=== PATIENT | female | born 1955 | race Caucasian/White ===

== ENCOUNTER 2018-01-12 22:30 | Observation (INO) ==
[2018-01-12] MEDS ORDERED: *HR* FentaNYL (PF) 100 MCG/2 ML VIAL IVP ONE (23:17)
[2018-01-12] MEDS ORDERED: Ondansetron 4 MG/2 ML VIAL IVP ONE (23:18)
--- NOTE | 2018-01-12 23:20 | Emergency Department Note ---
Disposition Clinical Impression: Headache Qualifiers: Headache type: unspecified Headache chronicity pattern: unspecified pattern Intractability: not intractable Qualified Code(s): R51 - Headache CVA (cerebral vascular accident) Qualifiers: CVA mechanism: unspecified Qualified Code(s): I63.9 - Cerebral infarction, unspecified Disposition: Admitted As Inpatient Condition: Fair Time of Disposition: 02:44 General Adult HPI - General Chief complaint: ED Back Pain/Injury Stated complaint: Neck pain, injured it 2 yrs ago Time Seen by Provider: 01/12/18 22:47 Source: patient, family Mode of arrival: ambulatory Limitations: no limitations Nursing Notes Reviewed: Yes Vital Signs Reviewed: Yes - History of Present Illness HPI Narrative: 62-year-old female with history of aneurysm coiled at [facility] last year presents for evaluation of headache as well as neck pain. Patient states she has chronic neck pain but however worsened acutely in the past 24 hours. Denies any specific trauma.Pain is primarily on the right cervical. Patient denies any nausea or vomiting. Patient denies any focal neurologic deficits besides tingling of the fingers. Patient denies any chest penetrance of breath. No fevers. Patient denies any weakness. Patient denies taking any specific pain medication besides Tylenol at home. Pain Scale: 5 - Related Data Allergies Allergy/AdvReac Type Severity Reaction Status Date / Time acetaminophen [From Vicodin] Allergy Hives Verified 01/12/18 22:36 codeine Allergy Hives Verified 01/12/18 22:36 hydrocodone [From Vicodin] Allergy Hives Verified 01/12/18 22:36 All systems ED: reviewed and negative except as stated. Constitutional: Denies: fever Cardiovascular: Denies: chest pain Respiratory: Denies: cough, dyspnea, wheezes Gastrointestinal: Denies: abdominal pain, nausea, vomiting Musculoskeletal: Denies: back pain Past Medical History - Past Medical History Source: patient Medical history: Reports: hyperlipidemia, hypertension Psychiatric history: Reports: anxiety, depression - Social History Smoking Status: Never smoker Smokeless Tobacco Status: No Alcohol use: Reports: none Drug use: Reports: none Physical Exam - General Limitations: no limitations General appearance: alert - Head Head exam: atraumatic, normocephalic, normal inspection - Eye Eye exam: Present: normal appearance, PERRL, EOMI - ENT ENT exam: normal exam, normal oropharynx, mucous membranes moist - Neck Neck exam: Present: normal inspection - Chest Chest inspection: Present: normal inspection - Respiratory Respiratory exam: Present: normal lung sounds bilaterally. Absent: respiratory distress - Cardiovascular Cardiovascular exam: Present: regular rate, normal rhythm. Absent: systolic murmur - Abdominal Exam Abdominal exam: Present: soft, Non-Tender - Extremities Exam Extremities exam: Present: normal inspection. Absent: pedal edema - Expanded Lower Extremity Exam Neurovascular/Tendon exam: Present: normal capillary refill - Back Exam Back exam: Present: normal inspection - Neurological Exam Neurological exam: Present: alert, oriented X3, CN II-XII intact - Skin Skin exam: Present: warm, dry, intact, normal color Course Course Narrative: Patient does have a history of aneurysm. Patient get a CT angiogram of the head and cervical spine. Patient also get appropriate pain control. Disposition pending. Patient is noted a stroke alert as she is outside any time window for last known well. Patient's only neurologic symptom was tingling in her hands. Patient has a nonfocal exam otherwise. - Reevaluation(s) Reevaluation #1: Patient's resting comfortably. Patient's neuro exam is unremarkable. Patient' s labs are also unremarkable. Awaiting CT [facility] the head and neck. Time: 01:13 Reevaluation #2: Patient is now complaining of Time: 02:05 Vital Signs Temperature 97.8 F 01/12/18 22:36 Pulse Rate 84 01/12/18 22:36 Respiratory Rate 18 01/12/18 22:36 Blood Pressure 188/95 01/12/18 22:36 O2 Sat by Pulse Oximetry 96 01/12/18 22:36 Temperature 97.8 F 01/12/18 22:36 Pulse Rate 58 01/13/18 04:39 Respiratory Rate 18 01/13/18 04:39 Blood Pressure 133/60 01/13/18 04:39 O2 Sat by Pulse Oximetry 93 01/13/18 04:39 Oxygen Delivery Oxygen Delivery Room Air Medical Decision Making - MDM Narrative Medical decision making narrative: Patient ED evaluation shows no acute intracranial hemorrhage or new aneurysm. Patient labs also are unremarkable. Patient's pain was controlled emergency department. Patient will be instructed can continue with anti-inflammatory as well as muscle relaxants for pain at home. Also recommend topical therapy such as icy hot. Patient's instructed to follow-up with her primary care physician regarding further management. There is low suspicion or concerns for meningitis or encephalitis. There is no concerns or suspicion of subarachnoid hemorrhage. Patient complains of R sided facial numbness and tingling of the hands. Patient will have an NIH 1. Would recommend admission with TIA v CVA and advanced imaging. - Lab Data Lab results reviewed: Yes I reviewed the patient's lab results. Result diagrams: 01/12/18 23:20 01/12/18 23:20 Lab Results 01/12/18 01/12/18 01/12/18 Range/Units 23:20 23:20 23:20 WBC 5.8 (4.3-11.1) K/mcL RBC 4.81 (3.82-4.97) M/mcL Hgb 14.4 (11.5-15.4) g/dL Hct 42.3 (35.3-44.9) % MCV 87.9 (83.0-100.0) fL MCH 29.9 (28.0-33.3) pg MCHC 34.0 (31.6-35.5) g/dL RDW 12.8 (11.5-14.5) % Plt Count 211 (140-400) K/mcL MPV 10.0 (9.4-12.4) fL Immature Gran % 0.2 (0-4) % Seg Neutrophils % 46.5 % Lymphocytes % 43.4 % Monocytes % 6.2 % Eosinophils % 2.8 % Basophils % 0.9 % Neutrophils # 2.7 (1.6-8.9) K/mcL Lymphocytes # 2.5 (0.6-4.6) K/mcL Monocytes # 0.4 (0.0-1.3) K/mcL Eosinophils # 0.2 (0.0-0.6) K/mcL Basophils # 0.1 (0.0-0.2) K/mcL PT 10.8 (9.4-12.1) Seconds INR 1.0 Sodium 138 (136-145) mEq/L Potassium 3.5 (3.5-5.1) mEq/L Chloride 108 H (98-107) mEq/L Carbon Dioxide 23 (23-29) mEq/L BUN 11 (8-23) mg/dL Creatinine 0.71 (0.60-1.20) mg/dL Est GFR ( Amer) > 60 (> 60) Est GFR (Non-Af Amer) > 60 (> 60) BUN/Creatinine Ratio 15 (6-26) Glucose 156 H (70-105) mg/dL Calculated Osmolality 289 (280-300) Calcium 9.4 (8.6-10.3) mg/dL - Radiology Data Radiology results reviewed: Yes I reviewed the patient's radiology results. 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 No evidence of recurrent aneurysm. No high-grade stenosis or focal occlusion involving the intracranial vasculature or cervical vasculature. Status post right frontal craniotomy with encephalomalacia within anterior right temporal lobe. No acute intracranial findings. No acute intracranial hemorrhage. 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 No evidence of recurrent aneurysm. No high-grade stenosis or focal occlusion involving the intracranial vasculature or cervical vasculature. Status post right frontal craniotomy with encephalomalacia within anterior right temporal lobe. No acute intracranial findings. No acute intracranial hemorrhage. D/ / Aditya Hebert MD / Aditya Hebert MD Interpreting Provider: Aditya Hebert MD - EKG Data EKG #1 EKG attestation: Yes I reviewed and interpreted this EKG. EKG shows normal: sinus rhythm Rate: bradycardia Rhythm: NSR Marshall/QRS: left axis deviation T wave inversions noted in: v1, v2 Interpretation: no acute changes, nonspecific ST-T wave changes S.B.A.R. - S.B.A.R. Situation: Demographics Background: Presenting Complaint Assessment: Vital Signs, Course and respsone to treatment, Patient/Family Expectation Recommendation: Barrier(s) to disposition, Recommendation based on pending studies, treatments, or consults S.B.A.R. Report Given to: Dr. Simpson SSandraB.ATrevor Repor Time: 02:44 Attestation Statement - Attestation Attestation: I examined this patient and my medical decision-making was reviewed with the Resident Physician. I agree with the documented findings, disposition and treatment plan as described except to the extent set forth below. Findings consistent with facial numbness and neck pain. History of aneurysm.This was coliled at [facility]. CT of the head and neck show no evidence of acute aneurysm. Patient does have an age score of 1. We will proceed with admission for rule out TIA versus stroke. Patient has not candidate for TPA as the onset of her symptoms is unclear.
[2018-01-12 23:30] LABS: Basophils # 0.1 K/mcL (0.0-0.2); Basophils % 0.9 %; Eosinophils # 0.2 K/mcL (0.0-0.6); Eosinophils % 2.8 %; Hematocrit 42.3 % (35.3-44.9); Hemoglobin 14.4 g/dL (11.5-15.4); Immature Granulocytes % 0.2 % (0-4); Lymphocytes # 2.5 K/mcL (0.6-4.6); Lymphocytes % 43.4 %; Mean Corpuscular Hemoglobin 29.9 pg (28.0-33.3); Mean Corpuscular Volume 87.9 fL (83.0-100.0); Monocytes # 0.4 K/mcL (0.0-1.3); Monocytes % 6.2 %; Neutrophils # 2.7 K/mcL (1.6-8.9); Platelet Count 211 K/mcL (140-400); Red Blood Count 4.81 M/mcL (3.82-4.97); Red Cell Distribution Width 12.8 % (11.5-14.5); Segmented Neutrophils % 46.5 %
[2018-01-12 23:35] LABS: Prothrombin Time 10.8 Seconds (9.4-12.1)
[2018-01-12 23:48] LABS: BUN/Creatinine Ratio 15 (6-26); Blood Urea Nitrogen 11 mg/dL (8-23); Calcium 9.4 mg/dL (8.6-10.3); Carbon Dioxide 23 mEq/L (23-29); Chloride 108 mEq/L (98-107); Glucose 156 mg/dL (70-105); Osmolality,Calculated 289 (280-300); Potassium 3.5 mEq/L (3.5-5.1); Sodium 138 mEq/L (136-145); eGFR For African Americans > 60 (> 60); eGFR For Non-African Americans > 60 (> 60)
[2018-01-13] MEDS ORDERED: Aspirin 81 MG TAB.CHEW PO ONE (02:04)
[2018-01-13] MEDS ORDERED: Naloxone 0.4 MG/ML INJ IVP PRN (02:56)
[2018-01-13] MEDS ORDERED: Acetaminophen 325 MG TABLET PO PRN (02:56)
--- NOTE | 2018-01-13 03:02 | Internal Med History&Physical ---
Date of Encounter: 01/13/18 Time of Encounter: 02:59 Internal Medicine - H&P: HPI Chief complaint: Headache Admitted From: Emergency Dept Plans for Post Hospital Care: Home History of present illness: Ms. Holt is a 62 year old female with history of brain aneurysm status post clipping/coiling, HTN, HLD, depression who initially presented to get evaluated for headache and becasue of her history of a brain aneurysm last year she underwent a CTA head and neck in the ED which were unremarkable. She initally came to get evaluated for a headache and later in her stay she mentioned facial numbness to the ED staff which is when we were called to admit the patient for TIA/CVA. ED staff could not get from the patient exact timing of symptoms from the patient as she is a really bad historian. When I came to evaluate the patient, she was mostly moaning in bed because of the headache and was pointing to her right side of the head. She says it is sharp and constand for last 3 days. When I asked her if it was only on the right side, she said no it also goes to the left too. She describes numbness of the face and bilateral upper and lower extremities that comes and goes. She feels weak. No dysarthria or confusion. Denies fever/chills/nausea/vomiting/chest pain/shortness of breath/ abdominal pain/urinary symptoms. She says nothing helps her headache. She received fentanyl in the ED. No aggravating factors. Past Med Surg Social Fam HX - Past Medical History Medical history: hyperlipidemia, hypertension Psychiatric history: anxiety, depression - Social History Smoking Status: Never smoker Smokeless Tobacco Status: No Alcohol use: none Drug use: none Internal Medicine - H&P: Meds 3 Allergy/AdvReac Type Severity Reaction Status Date / Time acetaminophen [From Vicodin] Allergy Hives Verified 01/12/18 22:36 codeine Allergy Hives Verified 01/12/18 22:36 hydrocodone [From Vicodin] Allergy Hives Verified 01/12/18 22:36 All Systems PM: A 10-system review of systems was performed and is negative for pertinent findings except as documented above in the HPI. Review of systems: All systems reviewed are negative except those mentioned above - Constitutional Vitals: Temp Pulse Resp BP Pulse Ox 97.8 F 16 69 130/83 96 01/12/18 22:36 01/13/18 02:46 01/13/18 02:46 01/13/18 02:46 01/13/18 02:46 Exam: GEN: NAD HEENT: AT, NC, No cyanosis, oral mucosa is moist, No JVD Lymphatics: No lymphadenoapthy Eyes: Extrocular muscles intact, anicteric CVS:RRR. S1, S2, No m/r/g RESP: CTAB ABD: Soft, NT, ND, +BS EXT: No edema, No rashes, 2+ DP NEURO: Nonfocal, CN II-XII intact, No focal motor or sensory deficits Psych: Cooperative, Not anxious or depressed Internal Med - H&P Results - Labs CBC & Chem 7: 01/12/18 23:20 01/12/18 23:20 Labs: Short CBC 01/12/18 Range/Units 23:20 WBC 5.8 (4.3-11.1) K/mcL Hgb 14.4 (11.5-15.4) g/dL Hct 42.3 (35.3-44.9) % Plt Count 211 (140-400) K/mcL Neutrophils # 2.7 (1.6-8.9) K/mcL BMP 01/12/18 23:20 Sodium 138 Potassium 3.5 Chloride 108 H Carbon Dioxide 23 BUN 11 Creatinine 0.71 Glucose 156 H Calcium 9.4 - Impressions ITS Impressions Chest X-Ray 01/13/18 02:06 IMPRESSION: 1. No acute cardiopulmonary disease. 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 No evidence of recurrent aneurysm. No high-grade stenosis or focal occlusion involving the intracranial vasculature or cervical vasculature. Status post right frontal craniotomy with encephalomalacia within anterior right temporal lobe. No acute intracranial findings. No acute intracranial hemorrhage. 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 No evidence of recurrent aneurysm. No high-grade stenosis or focal occlusion involving the intracranial vasculature or cervical vasculature. Status post right frontal craniotomy with encephalomalacia within anterior right temporal lobe. No acute intracranial findings. No acute intracranial hemorrhage. D/ / Aditya Hebert MD / Aditya Hebert MD Interpreting Provider: Aditya Hebert MD - Assessment and plan (1) Facial numbness Current Visit: Yes Status: Acute Assessment and plan: Not sure when they started exactly. She tells me they have been there for 3 days which is when her headache started. She told the ED staff different times of onset. Either way, her exact onset of symptoms is unknown. Patient had a CTA head and neck which were unremarkable. We will admit the patient and get an MRI brain in the morning. Patient is status post aspirin 325 mg. We will check lipid panel and A1c. If MRI brain is negative patient can be discharged. Her numbness could be related to complex migraines or hemiplegic migraines/ headaches (2) Headache Current Visit: Yes Status: Acute Assessment and plan: Treat symptomatically for now. Will give a trial of migraine cocktail (benadryl , compazine, toradol) Qualifiers: Headache type: unspecified Headache chronicity pattern: unspecified pattern Intractability: not intractable Qualified Code(s): R51 - Headache (3) Brain aneurysm Current Visit: Yes Status: Acute Assessment and plan: Status post coiling/clipping. (4) Hypertension Current Visit: Yes Status: Acute Assessment and plan: Resume home meds when available. BP stable for now Qualifiers: Hypertension type: essential hypertension Qualified Code(s): I10 - Essential (primary) hypertension (5) Hyperlipidemia Current Visit: Yes Status: Acute Assessment and plan: c/w home meds Qualifiers: Hyperlipidemia type: pure hypercholesterolemia Qualified Code(s): E78.00 - Pure hypercholesterolemia, unspecified; E78.0 - Pure hypercholesterolemia (6) DVT prophylaxis Current Visit: Yes Status: Acute Assessment and plan: Heparin subcutaneous - Time Spent With Patient Total time spent is greater than 50% in coordination of care (as documented) at patient's floor/unit and/or counseling patient:
[2018-01-13] MEDS ORDERED: Ketorolac 30 MG/ML VIAL IVP ONE ×2 (03:28→22:44)
[2018-01-13] MEDS ORDERED: Prochlorperazine 10 MG/2 ML VIAL IVP ONE (03:28)
[2018-01-13] MEDS: *HR* Heparin 5,000 UNIT/ML VIAL SQ SCH ×3 (05:33→20:43)
[2018-01-13 07:00] LABS: Chol/HDL Ratio 4.7 (0-4.9)
[2018-01-13 09:09] LABS: Estimated Average Glucose 134 mg/dl; Hemoglobin A1C 6.3 %
--- NOTE | 2018-01-13 16:12 | Event Note ---
Date of Encounter: 01/13/18 Time of Encounter: 16:10 The patient is lying in bed with her to bedside in no distress. She states she feels little better. She still has a slight headache. No facial numbness or extremity numbness. She states she feels like she pulled her neck muscles or slept wrong. Denies fevers, chills, nausea, vomiting, changes in bowel or bladder. Records have been received from [facility] and MRI of the brain is still pending.
--- NOTE | 2018-01-13 17:21 | Electrocardiograph Report ---
[place] [id number] Test Date: 2018-01-13 Pat Name: Merry Holt Department: 103 Room: 3B37 Gender: F [employer] Office: [employer] : 1955 Requested By: Kevin Livingston Order Number: [id number] Reading MD: Jodie Bowser Measurements Intervals [place] Rate: 58 P: 51 IA: 190 QRS: -25 QRSD: 109 T: 83 QT: 448 QTc: 444 Interpretive Statements SINUS BRADYCARDIA LEFT VENTRICULAR HYPERTROPHY AND ST-T CHANGE [VOLTAGE CRITERIA PLUS ST/T ABNORMALITY] IVCD Electronically Signed On 01-13-2018 17:19:34 EDT by Jodie Bowser
[2018-01-13] MEDS ORDERED: cefTRIAXone 2,000 MG in Water for inj. (sterile) 20 ML 20 ML IVP ONE (18:45)
--- NOTE | 2018-01-13 18:45 | Neurology - Consult Note ---
Date of Encounter: 01/13/18 Time of Encounter: 18:40 Assessment and Plan (1) Headache Current Visit: Yes Status: Acute Patient's neurologic examination is essentially normal. However she has been experiencing right ear pain and a headache for about 2 weeks now. She does not have an elevated white count, nor does she have a fever. Today she had one episode of loose stools. It is possible that she could have a viral meningitis might of been seeded from the right labyrinth. However again she does not have nuchal rigidity does not have an elevated white blood cell count or elevated temperature. This could possibly I will be from right otitis media/external. I think it is reasonable to try and. Rocephin to see whether or not she feels better clinically overnight. She still has the neck discomfort and did feel some better earlier today after being given a muscle relaxer. She is not at all clinically improved tomorrow then I would anticipate lumbar puncture. I will reevaluate her tomorrow. Case discussed with the hospitalist. Qualifiers: Headache type: unspecified Headache chronicity pattern: unspecified pattern Intractability: not intractable Qualified Code(s): R51 - Headache History of Present Illness HPI: Ms. Holt is a 62 year old female who is being seen for neurologic consultation secondary to chief complaint of headache. She is been experiencing intermittent headaches for the last 2-3 weeks. Last night the headache became increasingly more intense and she simply wanted to come to the hospital to be further evaluated. She does have a prior history of cerebral aneurysm which was clipped about a year or so ago. She had CTA of the brain which did not reveal any evidence of hemorrhage or new aneurysms. MRI scan of the brain reveals postoperative changes in the right anterior temporal lobe region. Seroma was also present which is a normal postop finding. She denies sore throat but she does complain of right ear pain. She also complains of neck pain posteriorly and anteriorly. She denies chills or fever, she has had some photophobia. She is also very anxious and afraid. She denies any confusion associated with this. No numbness tingling or weakness of the arms or legs. Past Med Surg Social Fam HX - Past Medical History Medical history: hyperlipidemia, hypertension Psychiatric history: anxiety, depression - Past Surgical History Surgical History: hysterectomy - Social History Smoking Status: Never smoker Smokeless Tobacco Status: No Alcohol use: none Drug use: none - Family History Mother Name: Rin Judge Living Status: Age at : 52 Cause of : cancer Hx Family Cancer: Yes Medications and Allergies Albuterol Sulfate [Ventolin Hfa] 1 puff IH DAILY PRN 01/13/18 [History] Aspirin [Lo-Dose Aspirin EC] 81 mg PO DAILY 01/13/18 [History] Atenolol [Tenormin] 50 mg PO DAILY 01/13/18 [History] Atorvastatin [Lipitor] 40 mg PO HS 01/13/18 [History] Citalopram [CeleXA] 20 mg PO DAILY 01/13/18 [History] Ketoconazole Shampoo [Nizoral Shampoo] 1 appl TP DAILY 01/13/18 [History] Meloxicam [Mobic] 15 mg PO DAILY 01/13/18 [History] Metformin HCl [Metformin HCl ER] 500 mg PO DAILY 01/13/18 [History] Ondansetron HCl [Zofran] 4 mg PO Q8HR PRN 01/13/18 [History] SUMAtriptan Succinate [Imitrex] 100 mg PO DAILY PRN 01/13/18 [History] Tizanidine HCl 4 mg PO Q8H PRN 01/13/18 [History] hydrOXYzine HCl [Hydroxyzine HCl] 25 mg PO TID 01/13/18 [History] hydroCHLOROthiazide [Hydrochlorothiazide] 25 mg PO DAILY 01/13/18 [History] 3 Allergy/AdvReac Type Severity Reaction Status Date / Time acetaminophen [From Vicodin] Allergy Hives Verified 01/13/18 10:52 codeine Allergy Hives Verified 01/13/18 10:52 hydrocodone [From Vicodin] Allergy Hives Verified 01/13/18 10:52 All Systems: The remainder of the systems were reviewed and are negative Review of Systems: In point review of systems is consistent with a history of present illness and otherwise negative. Physical Examination - Vital Signs Vital Signs: Initial Vital Signs Temp Pulse Resp BP Pulse Ox 97.8 F 84 18 188/95 96 01/12/18 22:36 01/12/18 22:36 01/12/18 22:36 01/12/18 22:36 01/12/18 22:36 - Neurologic Detailed motor examination: full strength in all major muscle groups, other ( She does have some neck tenderness however she does not have nuchal rigidity.) Motor examination - right side: 02/13: deltoids, biceps, triceps, wrist flexion, wrist extension, film writer, hip flexors, tibialis Anterior, quadriceps, toe extension (EHL), plantarflexion Motor examination - left side: 5: deltoids, biceps, triceps, wrist flexion, wrist extension, hip flexors, film writer, quadriceps, tibialis Anterior, toe extension (EHL), plantarflexion Mental Status Examination: awake, alert, oriented to person, oriented to place, oriented to time, follows commands appropriately, answers questions appropriately, no agnosia, no aphasia, no aproxia Cranial nerve examination: PERRL, EOMI, visual rene intact, corneal reflexes brisk symmetrically, sensory to face intact, mastication intact, no facial asymmetry is present, no dysarthria, hearing is intact symmetrically, soft palate elevates bilaterally upon phonation, gag reflex intact, flexes SCM and trapezius muscles symmetrically with full power, tongue protrudes midline, no atrophy or facial fasiculations present Cranial Nerve Exam: hearing decreased: Right (Patient does have inflammation and ulceration of the right external canal. The right tympanic membrane membrane is also inflamed.) Cerebellar examination: no dysmetria, performs finger to nose and heel to jacques symmetrically without ataxia, no gait ataxia, no truncal ataxia, no difficulty with rapid alternating movements Results - Laboratory Findings CBC and BMP: 01/12/18 23:20 01/12/18 23:20 Abnormal lab findings: Abnormal lab results Chloride 108 mEq/L (98-107) H 01/12/18 23:20 Glucose 156 mg/dL (70-105) H 01/12/18 23:20 Hemoglobin A1c 6.3 % (-5.6) H 01/13/18 05:33 LDL Cholesterol, Calc 123 mg/dL (0-99) H 01/13/18 05:33 Consult Discharge Plan - Plan Referrals: Hari Olguin DO [Primary Care Provider] -
[2018-01-13] MEDS: Cortisporin *EAR* SOLN 10 ML BOTTLE RIGHT EAR SCH ×2 (20:35→20:50)
[2018-01-14] MEDS: *HR* Heparin 5,000 UNIT/ML VIAL SQ SCH (05:20)
[2018-01-14 07:20] LABS: BUN/Creatinine Ratio 19 (6-26); Blood Urea Nitrogen 13 mg/dL (8-23); Calcium 8.8 mg/dL (8.6-10.3); Carbon Dioxide 25 mEq/L (23-29); Chloride 114 mEq/L (98-107); Glucose 114 mg/dL (70-105); Osmolality,Calculated 287 (280-300); Sodium 138 mEq/L (136-145); eGFR For African Americans > 60 (> 60); eGFR For Non-African Americans > 60 (> 60)
[2018-01-14 07:28] LABS: Hematocrit 41.3 % (35.3-44.9); Hemoglobin 13.7 g/dL (11.5-15.4); Mean Corpuscular HGB Conc 33.2 g/dL (31.6-35.5); Mean Corpuscular Hemoglobin 29.8 pg (28.0-33.3); Mean Corpuscular Volume 89.8 fL (83.0-100.0); Mean Platelet Volume 10.2 fL (9.4-12.4); Platelet Count 195 K/mcL (140-400); Red Cell Distribution Width 12.7 % (11.5-14.5)
[2018-01-14] MEDS: Cortisporin *EAR* SOLN 10 ML BOTTLE RIGHT EAR SCH (09:40)
--- NOTE | 2018-01-14 09:45 | Neurology Progress Note ---
Date of Encounter: 01/14/18 Time of Encounter: 09:42 Assessment and Plan (1) Headache Current Visit: Yes Status: Acute At this juncture I am convinced that this patient's intense headache and discomfort was due to the right ear infection. She denies any ear pain this morning after having received antibiotics and eardrops, she also denies headache. She has no nuchal rigidity. Labs are normal. Neurologic examination is normal. At this juncture I think the spinal tap can be deferred. Further management of the otitis will be left up to the discretion of the hospitalist. I will reevaluate her at your request. Qualifiers: Headache type: unspecified Headache chronicity pattern: unspecified pattern Intractability: not intractable Qualified Code(s): R51 - Headache Subjective Interval history: The chart was reviewed, patient was seen and examined. She feels much better this morning. She denies any ear pain. The neck pain has reduced considerably. She has no nuchal rigidity. She is anxious to go home. Neurologic examination is normal. Objective - Constitutional Vitals: Temp Pulse Resp BP Pulse Ox 97.8 F 64 14 102/77 96 01/14/18 07:03 01/14/18 07:03 01/14/18 07:03 01/14/18 07:03 01/14/18 07:03 - Neurological Exam Motor Examination: Present: full strength in all major muscle groups, other ( She does have some neck tenderness however she does not have nuchal rigidity.) Motor examination - right side: 5/5: deltoids, biceps, triceps, manager cancer, hip flexors, tibialis Anterior, quadriceps, toe extension (EHL), plantarflexion Motor examination - left side: 5/5: deltoids, biceps, triceps, wrist flexion, wrist extension, hip flexors, manager cancer, quadriceps, tibialis Anterior, toe extension (EHL), plantarflexion Sensation intact: Present: intact Mental Status Examination: Present: awake, alert, oriented to person, oriented to place, oriented to time, follows commands appropriately, answers questions appropriately, no agnosia, no aphasia, no aproxia Cranial nerve examination: Present: PERRL, EOMI, visual rene intact, corneal reflexes brisk symmetrically, sensory to face intact, mastication intact, no facial asymmetry is present, no dysarthria, hearing is intact symmetrically, soft palate elevates bilaterally upon phonation, gag reflex intact, flexes SCM and trapezius muscles symmetrically with full power, tongue protrudes midline, no atrophy or facial fasiculations present Cranial Nerve Exam: hearing decreased: Right (Patient does have inflammation and ulceration of the right external canal. The right tympanic membrane membrane is also inflamed.) Cerebellar examination: Present: no dysmetria, performs finger to nose and heel to jacques symmetrically without ataxia, no gait ataxia, no truncal ataxia, no difficulty with rapid alternating movements Results - Laboratory Findings CBC and BMP: 01/14/18 05:51 01/14/18 05:51 Abnormal lab findings: Abnormal lab results Chloride 114 mEq/L (98-107) H 01/14/18 05:51 Glucose 114 mg/dL (70-105) H 01/14/18 05:51 Hemoglobin A1c 6.3 % (-5.6) H 01/13/18 05:33 LDL Cholesterol, Calc 123 mg/dL (0-99) H 01/13/18 05:33 Consult Discharge Plan - Plan Referrals: Hari Olguin DO [Primary Care Provider] -
[2018-01-14 11:21] VITALS: BP 165/60
--- NOTE | 2018-01-14 11:25 | Discharge Summary ---
- NOTES TO OUTPATIENT PROVIDER Notes to Outpatient Provider: f/u with PCP in 2 weeks to f/u on otitis media and neck sprain Date of Encounter: 01/14/18 Time of Encounter: 11:22 - Discharge Diagnosis (1) Headache Priority: Primary Status: Resolved Comments: likely secondary to neck pain and/or otitis media, resolved with treatment of neck stiffness Qualifiers: Headache type: unspecified Headache chronicity pattern: acute headache Intractability: not intractable Qualified Code(s): R51 - Headache (2) Facial numbness Priority: Primary Status: Resolved (3) Brain aneurysm Priority: Primary Status: Chronic Comments: stable (4) Hypertension Priority: Primary Status: Chronic Comments: continue blood pressure medication blood pressure stable Qualifiers: Hypertension type: essential hypertension Qualified Code(s): I10 - Essential (primary) hypertension (5) Hyperlipidemia Priority: Primary Status: Chronic Comments: continue statin Qualifiers: Hyperlipidemia type: pure hypercholesterolemia Qualified Code(s): E78.00 - Pure hypercholesterolemia, unspecified; E78.0 - Pure hypercholesterolemia (6) Otitis media of right ear Priority: Primary Status: Acute Comments: continue antibiotic for 10 day course Qualifiers: Otitis media type: suppurative Chronicity: acute Recurrence: not specified as recurrent Spontaneous tympanic membrane rupture: without spontaneous rupture Qualified Code(s): H66.001 - Acute suppurative otitis media without spontaneous rupture of ear drum, right ear (7) Otitis externa of right ear Priority: Primary Status: Acute Comments: continue ear drops for 10 days to right ear Qualifiers: Otitis externa type: unspecified type Chronicity: acute Qualified Code(s) : H60.501 - Unspecified acute noninfective otitis externa, right ear (8) Neck pain, musculoskeletal Priority: Primary Status: Acute Comments: continue muscle relaxer, heat for comfort Hospital course: Ms. Holt is a 62 year old female with a history of brain aneurysm status post clipping and coiling, hypertension, hyperlipidemia, depression who presented for evaluation of a headache and facial numbness. CTA of the head and neck were unremarkable. The headache was sharp and constant in nature have been a duration of 3 days. She stated was only on the right side of her head but some times it went to the left side. She described and numbness of her face and upper extremities bilaterally as well as some lower extremity numbness that waxed and waned. She felt generally weak. She had no fever, chills, nausea, vomiting, chest pain shortness of breath, abdominal pain or urinary symptoms. She received some fentanyl for the headache in the ER and on my evaluation the headache was relieved. She did complain of some right neck pain with movement. It was very tense on evaluation and she had difficulty with range of motion of her neck but no nuchal rigidity. No white count and no fever. Nor was consult noted. She was found to have a right external and medial otitis. Antibiotic ear drops were started as well as 2 g of Rocephin 1 dose. Muscle relaxer was started with good effect for repeat relief of the neck stiffness. On evaluation this morning her ear pain was gone her headache was totally resolved and she had much freer movement in her neck. She had no other symptoms, no blurred vision no Ivon deficits. She was a 0 on the NIH scale. She will be discharged on Augmentin and antibiotic ear drops. She is to follow up with her primary care physician in 14 days for evaluation of the otitis media. She was also given a short course of muscle relaxers and explained modalities to help with a stiff neck as well as muscle tensions. She verbalized understanding and is anxious to be discharged. Discharge discussed with: patient, family, nurse, case management - Time Spent with Patient Total time spent providing and/or coordinating discharge services: Less than 30 minutes - Discharge Medications Prescriptions: Amoxicillin/Clavulanate [Augmentin] 875 mg PO BIDWM 10 Days #20 tablet Cyclobenzaprine [Flexeril] 10 mg PO TID PRN 7 Days #21 tablet PRN Reason: Spasms Ramiro/Poly/HC *EAR* SOLN [Cortisporin *EAR* SOLN] 2 drop RIGHT EAR QID #1 bottle Home Medications: Albuterol Sulfate [Ventolin Hfa] 1 puff IH DAILY PRN 01/13/18 [History] Aspirin [Lo-Dose Aspirin EC] 81 mg PO DAILY 01/13/18 [History] Atenolol [Tenormin] 50 mg PO DAILY 01/13/18 [History] Atorvastatin [Lipitor] 40 mg PO HS 01/13/18 [History] Citalopram [CeleXA] 20 mg PO DAILY 01/13/18 [History] Ketoconazole Shampoo [Nizoral Shampoo] 1 appl TP DAILY 01/13/18 [History] Meloxicam [Mobic] 15 mg PO DAILY 01/13/18 [History] Metformin HCl [Metformin HCl ER] 500 mg PO DAILY 01/13/18 [History] Ondansetron HCl [Zofran] 4 mg PO Q8HR PRN 01/13/18 [History] SUMAtriptan Succinate [Imitrex] 100 mg PO DAILY PRN 01/13/18 [History] Tizanidine HCl 4 mg PO Q8H PRN 01/13/18 [History] hydrOXYzine HCl [Hydroxyzine HCl] 25 mg PO TID 01/13/18 [History] hydroCHLOROthiazide [Hydrochlorothiazide] 25 mg PO DAILY 01/13/18 [History] Amoxicillin/Clavulanate [Augmentin] 875 mg PO BIDWM 10 Days #20 tablet 01/14/18 [Rx] Cyclobenzaprine [Flexeril] 10 mg PO TID PRN 7 Days #21 tablet 01/14/18 [Rx] Ramiro/Poly/HC *EAR* SOLN [Cortisporin *EAR* SOLN] 2 drop RIGHT EAR QID #1 bottle 01/14/18 [Rx] Allergies/Adverse Reactions: 3 Allergy/AdvReac Type Severity Reaction Status Date / Time acetaminophen [From Vicodin] Allergy Hives Verified 01/13/18 10:52 codeine Allergy Hives Verified 01/13/18 10:52 hydrocodone [From Vicodin] Allergy Hives Verified 01/13/18 10:52 Date of admission: 01/13/18 04:05 Primary care physician: Hari Olguin DO Consults: 01/13/18 05:28 Consult to Data Assistant [CONS] Routine Reason for SW Consult: states she has home health- [facility] 01/13/18 16:12 Consult to Neurology [CONS] Routine Consulting Provider: Neurology [facility] Reason for Consult: headache and historuy brain aneurysm Time Notified: 16:13 Call Completed: Yes Discharging clinician: Suzan Mcallister Anticipated date of discharge: 01/14/18 - Constitutional Vitals: Temp Pulse Resp BP Pulse Ox 97.8 F 70 14 165/60 96 01/14/18 11:20 01/14/18 11:20 01/14/18 11:20 01/14/18 11:20 01/14/18 11:20 General appearance: Present: cooperative, A&O X 3, pleasant, no acute distress, answers questions appropriately - Head Head exam: Present: atraumatic, normocephalic - Eye Eye exam: Present: normal appearance, PERRL, conjuntiva pink, sclera anicteric. Absent: nystagmus Pupils: Present: PERRL - Neck Neck exam general surgery: Present: full ROM, normal inspection, supple, trachea midline. Absent: lymphadenopathy, tenderness, nuchal rigidity - Respiratory Respiratory exam: Present: CTAB. Absent: accessory muscle use, rales, rhonchi, wheezes - Cardiovascular Cardiovascular exam: Present: RRR, +S1, +S2. Absent: diastolic murmur, gallop, rubs, systolic murmur - GI/Abdominal GI/Abdominal exam: Present: normal bowel sounds, soft, no peritoneal signs. Absent: distended, tenderness - Extremities Exam Extremities exam: Present: warm, radial pulses palpable and symmetrical. Absent : calf tenderness, cyanotic, pedal edema - Neurological Exam Neurological exam: Present: alert, CN II-XII intact, normal gait, oriented X3, no focal deficits. Absent: altered, pronater drift, facial droop, speech deficit - Skin Skin exam: Present: dry, intact, normal color, warm - Patient Status Disposition: Home Health Service Condition: Fair Functional capacity at discharge: independent ambulation Overall status at discharge: patient is progressing back to baseline - Discharge Instructions Follow Up With: Hari Olguin DO [Primary Care Provider] - Sonya Wing DO [Resident] - 01/18/18 10:00 am - Diet and Activity Activity: resume usual activities as tolerated Diet: low fat, low cholesterol, low salt diet, other (yogurt with antibiotic or OTC probiotic daily)
== END 2018-01-14 13:40 | disposition home health service (06) ==
LOC: 3BNU 22:30 → EMEROO 22:30 → 3BNU 01-13 04:55
PROVIDERS: ADMIT Internal Medicine; ATTEND Registered Nurse

== ENCOUNTER 2018-03-28 16:52 | Inpatient (IN) ==
[2018-03-28] MEDS ORDERED: 0.9 % Sodium Chloride 1,000 ML IVC ONE ×2 (17:14→18:34)
[2018-03-28] MEDS ORDERED: Ondansetron 4 MG/2 ML VIAL IVP ONE (17:14)
--- NOTE | 2018-03-28 17:24 | Emergency Department Note ---
Disposition Clinical Impression: Abdominal pain, Sepsis, UTI (urinary tract infection), Pyelonephritis Disposition: Admitted As Inpatient Condition: Fair Referrals: Hari Olguin DO [Primary Care Provider] - Forms: ED Satisfaction Letter General Adult HPI - General Chief complaint: ED Fever Stated complaint: chills Time Seen by Provider: 03/28/18 16:56 Source: patient Limitations: no limitations - History of Present Illness Pain Scale: 9 - Related Data Home Medications Medication Instructions Recorded Confirmed Albuterol Sulfate [Ventolin Hfa] 1 puff IH DAILY PRN 01/13/18 01/13/18 Aspirin [Lo-Dose Aspirin EC] 81 mg PO DAILY 01/13/18 01/13/18 Atenolol [Tenormin] 50 mg PO DAILY 01/13/18 01/13/18 Atorvastatin [Lipitor] 40 mg PO HS 01/13/18 01/13/18 Citalopram [CeleXA] 20 mg PO DAILY 01/13/18 01/13/18 Ketoconazole Shampoo [Nizoral 1 appl TP DAILY 01/13/18 01/13/18 Shampoo] Meloxicam [Mobic] 15 mg PO DAILY 01/13/18 01/13/18 Metformin HCl [Metformin HCl ER] 500 mg PO DAILY 01/13/18 01/13/18 Ondansetron HCl [Zofran] 4 mg PO Q8HR PRN 01/13/18 01/13/18 SUMAtriptan Succinate [Imitrex] 100 mg PO DAILY PRN 01/13/18 01/13/18 Tizanidine HCl 4 mg PO Q8H PRN 01/13/18 01/13/18 hydrOXYzine HCl [Hydroxyzine HCl] 25 mg PO TID 01/13/18 01/13/18 hydroCHLOROthiazide 25 mg PO DAILY 01/13/18 01/13/18 [Hydrochlorothiazide] Previous Rx's Medication Instructions Recorded Amoxicillin/Clavulanate [Augmentin] 875 mg PO BIDWM 10 Days #20 tablet 01/14/18 Cyclobenzaprine [Flexeril] 10 mg PO TID PRN 7 Days #21 tablet 01/14/18 Ramiro/Poly/HC *EAR* SOLN 2 drop RIGHT EAR QID #1 bottle 01/14/18 [Cortisporin *EAR* SOLN] Allergies Allergy/AdvReac Type Severity Reaction Status Date / Time acetaminophen [From Vicodin] Allergy Hives Verified 01/13/18 10:52 codeine Allergy Hives Verified 01/13/18 10:52 hydrocodone [From Vicodin] Allergy Hives Verified 01/13/18 10:52 Past Medical History - Past Medical History Medical history: Reports: hyperlipidemia, hypertension Surgical history: Reports: hysterectomy Psychiatric history: Reports: anxiety, depression - Social History Smoking Status: Never smoker Smokeless Tobacco Status: No Alcohol use: Reports: none Drug use: Reports: none Physical Exam - General Limitations: no limitations General appearance: alert, anxious Course Vital Signs Temperature 99.9 F H 03/28/18 16:53 Pulse Rate 128 03/28/18 16:53 Respiratory Rate 22 03/28/18 16:53 Blood Pressure 171/79 03/28/18 16:53 O2 Sat by Pulse Oximetry 94 03/28/18 16:53 Temperature 99.9 F H 03/28/18 18:21 Pulse Rate 91 03/28/18 18:21 Respiratory Rate 18 03/28/18 18:21 Blood Pressure 154/73 03/28/18 18:21 O2 Sat by Pulse Oximetry 95 03/28/18 18:21 Oxygen Delivery Oxygen Delivery Room Air Medical Decision Making - Lab Data Result diagrams: 03/28/18 17:21 03/28/18 17:21 Lab Results 03/28/18 03/28/18 03/28/18 Range/Units 17:21 17:21 17:21 WBC 8.1 (4.3-11.1) K/mcL RBC 5.07 H (3.82-4.97) M/mcL Hgb 15.3 (11.5-15.4) g/dL Hct 45.1 H (35.3-44.9) % MCV 89.0 (83.0-100.0) fL MCH 30.2 (28.0-33.3) pg MCHC 33.9 (31.6-35.5) g/dL RDW 12.9 (11.5-14.5) % Plt Count 200 (140-400) K/mcL MPV 10.4 (9.4-12.4) fL Immature Gran % 0.2 (0-4) % Seg Neutrophils % 78.1 % Lymphocytes % 12.4 % Monocytes % 8.6 % Eosinophils % 0.2 % Basophils % 0.5 % Neutrophils # 6.3 (1.6-8.9) K/mcL Lymphocytes # 1.0 (0.6-4.6) K/mcL Monocytes # 0.7 (0.0-1.3) K/mcL Eosinophils # 0.0 (0.0-0.6) K/mcL Basophils # 0.0 (0.0-0.2) K/mcL PT 13.2 H (9.4-12.1) Seconds INR 1.2 Sodium 134 L (136-145) mEq/L Potassium 4.2 (3.5-5.1) mEq/L Chloride 102 (98-107) mEq/L Carbon Dioxide 20 L (23-29) mEq/L BUN 11 (8-23) mg/dL Creatinine 1.03 (0.60-1.20) mg/dL Est GFR ( Amer) > 60 (> 60) Est GFR (Non-Af Amer) 54 L (> 60) BUN/Creatinine Ratio 11 (6-26) Glucose 223 H (70-105) mg/dL Calculated Osmolality 284 (280-300) Lactic Acid (0.5-2.2) mmol/L Calcium 9.6 (8.6-10.3) mg/dL Total Bilirubin 1.2 H (0.3-1.0) mg/dL Direct Bilirubin 0.4 H (0.0-0.2) mg/dL Indirect Bilirubin 0.8 (0.0-1.2) mg/dL AST 16 (13-39) Units/L ALT 16 (7-52) Units/L Alkaline Phosphatase 76 (34-104) Units/L Troponin I < 0.03 (< 0.04) ng/mL Serum Total Protein 8.0 (6.4-8.9) g/dL Albumin 4.2 (3.5-5.7) g/dL Globulin 3.8 H (2.4-3.5) g/dL Albumin/Globulin Ratio 1.1 (1.1-2.2) Lipase 13 (11-82) Units/L Urine Color (Yellow) Urine Clarity (Clear) Urine pH (5.0-8.0) pH Units Ur Specific [address] (1.010-1.025) Urine Protein (Neg-Trace) mg/dL Urine Glucose (UA) (Normal) mg/dL Urine Ketones (Negative) mg/dL Urine Blood (Negative) Urine Nitrite (Negative) Urine Bilirubin (Negative) Urine Urobilinogen (Normal) mg/dL Ur Leukocyte Esterase (Negative) Urine Microscopic RBC (0-3) per hpf Urine Microscopic WBC (0-3) per hpf Ur Squamous Epith Cells (None-Few) per lpf Urine Bacteria (None-Few) per hpf Ur Culture Indicated? (NO) 03/28/18 03/28/18 Range/Units 17:21 17:30 WBC (4.3-11.1) K/mcL RBC (3.82-4.97) M/mcL Hgb (11.5-15.4) g/dL Hct (35.3-44.9) % MCV (83.0-100.0) fL MCH (28.0-33.3) pg MCHC (31.6-35.5) g/dL RDW (11.5-14.5) % Plt Count (140-400) K/mcL MPV (9.4-12.4) fL Immature Gran % (0-4) % Seg Neutrophils % % Lymphocytes % % Monocytes % % Eosinophils % % Basophils % % Neutrophils # (1.6-8.9) K/mcL Lymphocytes # (0.6-4.6) K/mcL Monocytes # (0.0-1.3) K/mcL Eosinophils # (0.0-0.6) K/mcL Basophils # (0.0-0.2) K/mcL PT (9.4-12.1) Seconds INR Sodium (136-145) mEq/L Potassium (3.5-5.1) mEq/L Chloride (98-107) mEq/L Carbon Dioxide (23-29) mEq/L BUN (8-23) mg/dL Creatinine (0.60-1.20) mg/dL Est GFR ( Amer) (> 60) Est GFR (Non-Af Amer) (> 60) BUN/Creatinine Ratio (6-26) Glucose (70-105) mg/dL Calculated Osmolality (280-300) Lactic Acid 2.7 H (0.5-2.2) mmol/L Calcium (8.6-10.3) mg/dL Total Bilirubin (0.3-1.0) mg/dL Direct Bilirubin (0.0-0.2) mg/dL Indirect Bilirubin (0.0-1.2) mg/dL AST (13-39) Units/L ALT (7-52) Units/L Alkaline Phosphatase (34-104) Units/L Troponin I (< 0.04) ng/mL Serum Total Protein (6.4-8.9) g/dL Albumin (3.5-5.7) g/dL Globulin (2.4-3.5) g/dL Albumin/Globulin Ratio (1.1-2.2) Lipase (11-82) Units/L Urine Color Dark Yellow (Yellow) Urine Clarity Turbid A (Clear) Urine pH 5.0 (5.0-8.0) pH Units Ur Specific [address] 1.024 (1.010-1.025) Urine Protein 100 H (Neg-Trace) mg/dL Urine Glucose (UA) Normal (Normal) mg/dL Urine Ketones Trace H (Negative) mg/dL Urine Blood Large H (Negative) Urine Nitrite Positive A (Negative) Urine Bilirubin Small H (Negative) Urine Urobilinogen 2.0 H (Normal) mg/dL Ur Leukocyte Esterase Large H (Negative) Urine Microscopic RBC 3-5 H (0-3) per hpf Urine Microscopic WBC TNTC H (0-3) per hpf Ur Squamous Epith Cells Many H (None-Few) per lpf Urine Bacteria Few (None-Few) per hpf Ur Culture Indicated? NO. A (NO) Attestation Statement - Attestation Attestation: I examined this patient and my medical decision-making was reviewed with the Resident Physician. I agree with the documented findings, disposition and treatment plan as described except to the extent set forth below. Patient to the ED complaining of abdominal pain and chills. Onset about 3 or 4 days ago. Complains of a headache today. Patient states she has pain in her upper abdomen. Decreased appetite. On examination her temp is 99 9. She is tachycardic. Upper abdominal tenderness. Lungs clear. Plan. Septic workup. Patient also complaining of a headache on the right side of her head where she had a prior aneurysm coiling. We will check CT head. CT abdomen and pelvis. Labs UA. Likely admission. Patient with UTI. Scans unremarkable. Patient started on IV antibiotic admitted to the hospitalist service. Abdomen/Pelvis CT 03/28/18 17:15 IMPRESSION: 1. Mild urothelial thickening along the left renal pelvis, which may be related to acute or remote infection or inflammation. Bladder wall thickening and adjacent inflammatory changes present, which can be seen with acute cystitis, although this appears similar to prior exam. 2. Extensive diverticulosis without evidence of diverticulitis. 3. Hepatic steatosis. 4. Possible layering gallbladder sludge or tiny stones. No evidence of acute cholecystitis. D/ / 03/28/2018 18:32:07 Rob Tai MD / edson Interpreting Provider: Rob Tai MD Chest X-Ray 03/28/18 17:16 IMPRESSION: No acute cardiopulmonary process. D/ / Rob Tai MD / Rob Tai MD Interpreting Provider: Rob Tai MD Head CT 03/28/18 17:23 IMPRESSION: No acute intracranial abnormality. D/ / Mahendra Howell MD / Mahendra Howell MD Interpreting Provider: Mahendra Howell MD
[2018-03-28] MEDS ORDERED: *HR* FentaNYL (PF) 100 MCG/2 ML VIAL IVP ONE (17:25)
--- NOTE | 2018-03-28 17:28 | Emergency Department Note ---
Disposition Clinical Impression: Pyelonephritis Abdominal pain Qualifiers: Abdominal location: epigastric Qualified Code(s): R10.13 - Epigastric pain Sepsis Qualifiers: Sepsis type: sepsis due to unspecified organism Qualified Code(s): A41.9 - Sepsis, unspecified organism UTI (urinary tract infection) Qualifiers: Urinary tract infection type: site unspecified Hematuria presence: without hematuria Qualified Code(s): N39.0 - Urinary tract infection, site not specified Disposition: Admitted As Inpatient Condition: Fair Referrals: Hari Olguin DO [Primary Care Provider] - Forms: ED Satisfaction Letter Time of Disposition: 18:40 General Adult HPI - General Chief complaint: ED Fever Stated complaint: chills Time Seen by Provider: 03/28/18 16:56 Source: patient Mode of arrival: ambulatory Limitations: no limitations Nursing Notes Reviewed: Yes Vital Signs Reviewed: Yes - History of Present Illness HPI Narrative: 62-year-old female with a history of hypertension as well as cerebral aneurysm post coil presents for evaluation of "chills". Patient states she started to feel ill approximately 4 days ago. At that time the patient had intermittent epigastric discomfort without radiation. Patient's had some nausea no vomiting. Patient's also had subjective fever and chills during this timeframe. Patient denies any cough or dyspnea. Patient states she did have some left upper chest wall pain earlier today however that has since resolved. Patient denies any diarrhea or constipation. Patient denies any dysuria. Patient notes a decreased appetite. Patient states she has had a hysterectomy in the past but denies any other abdominal surgeries. Patient also states that she had a headache during this timeframe on the right side of her head consistent with her prior aortic aneurysm. Patient denies any focal neurologic deficits. Denies any neck stiffness. Pain Scale: 9 - Related Data Home Medications Medication Instructions Recorded Confirmed Albuterol Sulfate [Ventolin Hfa] 1 puff IH DAILY PRN 01/13/18 01/13/18 Aspirin [Lo-Dose Aspirin EC] 81 mg PO DAILY 01/13/18 01/13/18 Atenolol [Tenormin] 50 mg PO DAILY 01/13/18 01/13/18 Atorvastatin [Lipitor] 40 mg PO HS 01/13/18 01/13/18 Citalopram [CeleXA] 20 mg PO DAILY 01/13/18 01/13/18 Ketoconazole Shampoo [Nizoral 1 appl TP DAILY 01/13/18 01/13/18 Shampoo] Meloxicam [Mobic] 15 mg PO DAILY 01/13/18 01/13/18 Metformin HCl [Metformin HCl ER] 500 mg PO DAILY 01/13/18 01/13/18 Ondansetron HCl [Zofran] 4 mg PO Q8HR PRN 01/13/18 01/13/18 SUMAtriptan Succinate [Imitrex] 100 mg PO DAILY PRN 01/13/18 01/13/18 Tizanidine HCl 4 mg PO Q8H PRN 01/13/18 01/13/18 hydrOXYzine HCl [Hydroxyzine HCl] 25 mg PO TID 01/13/18 01/13/18 hydroCHLOROthiazide 25 mg PO DAILY 01/13/18 01/13/18 [Hydrochlorothiazide] Previous Rx's Medication Instructions Recorded Amoxicillin/Clavulanate [Augmentin] 875 mg PO BIDWM 10 Days #20 tablet 01/14/18 Cyclobenzaprine [Flexeril] 10 mg PO TID PRN 7 Days #21 tablet 01/14/18 Ramiro/Poly/HC *EAR* SOLN 2 drop RIGHT EAR QID #1 bottle 01/14/18 [Cortisporin *EAR* SOLN] Allergies Allergy/AdvReac Type Severity Reaction Status Date / Time acetaminophen [From Vicodin] Allergy Hives Verified 01/13/18 10:52 codeine Allergy Hives Verified 01/13/18 10:52 hydrocodone [From Vicodin] Allergy Hives Verified 01/13/18 10:52 All systems ED: reviewed and negative except as stated. Constitutional: Reports: fever, chills Cardiovascular: Reports: chest pain Respiratory: Denies: cough, dyspnea, sputum production Gastrointestinal: Reports: abdominal pain, nausea. Denies: vomiting, diarrhea, constipation Neurological: Reports: headache Past Medical History - Past Medical History Source: patient Medical history: Reports: hyperlipidemia, hypertension Surgical history: Reports: hysterectomy Psychiatric history: Reports: anxiety, depression - Social History Smoking Status: Never smoker Smokeless Tobacco Status: No Alcohol use: Reports: none Drug use: Reports: none Physical Exam - General Limitations: no limitations General appearance: alert, in no apparent distress, anxious - Head Head exam: atraumatic, normocephalic, normal inspection - Eye Eye exam: Present: normal appearance, PERRL, EOMI. Absent: miosis, mydriasis - ENT ENT exam: normal exam, mucous membranes dry, other (oral thrush) - Neck Neck exam: Present: normal inspection, trachea midline - Chest Chest inspection: Present: normal inspection, symmetric chest wall rise - Respiratory Respiratory exam: Present: normal lung sounds bilaterally. Absent: respiratory distress - Cardiovascular Cardiovascular exam: Present: normal rhythm, tachycardia. Absent: systolic murmur - Abdominal Exam Abdominal exam: Present: soft, tenderness (Mild tenderness in the epigastrium). Absent: guarding, rebound - Extremities Exam Extremities exam: Present: normal inspection. Absent: pedal edema - Expanded Lower Extremity Exam Neurovascular/Tendon exam: Present: normal capillary refill. Absent: pulse deficit, motor deficit, sensory deficit - Back Exam Back exam: Present: normal inspection, full ROM. Absent: tenderness - Neurological Exam Neurological exam: Present: alert, oriented X3, CN II-XII intact - Expanded Neurological Exam Patient oriented to: Present: person, place, time Speech: Present: fluid speech Cranial nerves: EOM function (II, III, IV, ): Normal, facial sensation (V): Normal, facial palsy (VII): Normal, spinal accessory function (XI): Normal, tongue deviation (XII): Normal Motor strength - LUE: 5/5 Motor strength - RUE: 5/5 Motor strength - LLE: 5/5 Motor strength - RLE: 5/5 Coma Scale Eye Opening: Spontaneous Coma Scale Motor Response: Obeys Commands Coma Scale Verbal Response: Oriented Coma Scale Total: 15 - Skin Skin exam: Present: warm, dry, intact, normal color Course Course Narrative: Patient does appear to tachycardic, low-grade fever and tachypnea. Patient will get extensive evaluation including CT of the head, CT abd/pelvis. Basic labs chest x-ray disposition pending. - Reevaluation(s) Reevaluation #1: Bedside ultrasound performed by me shows anterior gallbladder wall 3 mm. There is no gallstones. There is no signs of pericholecystic fluid. Awaiting additional testing. Time: 17:51 Reevaluation #2: Patient was found to have a urinary tract infection. Given the patient's lab and clinical presentation will admin IV antibiotics. Time: 18:07 Reevaluation #3: Patient seen and examined. Patient's in no acute distress. Patient's tachycardia has improved. Patient states that she is feeling better. Discussed plan of care with the patient whose diagnosis currently is UTI/Cesar causing her symptoms. Patient does state she is having back pain consistent with the diagnosis. Patient's aware that she is being admitted. Time: 18:37 Vital Signs Temperature 99.9 F H 03/28/18 16:53 Pulse Rate 128 03/28/18 16:53 Respiratory Rate 22 03/28/18 16:53 Blood Pressure 171/79 03/28/18 16:53 O2 Sat by Pulse Oximetry 94 03/28/18 16:53 Temperature 99.9 F H 03/28/18 18:21 Pulse Rate 91 03/28/18 18:21 Respiratory Rate 18 03/28/18 18:21 Blood Pressure 154/73 03/28/18 18:21 O2 Sat by Pulse Oximetry 95 03/28/18 18:21 Oxygen Delivery Oxygen Delivery Room Air Medical Decision Making - MDM Narrative Medical decision making narrative: Patient presents with Sirs criteria. Patient was tachycardic, tachypnea. Possible source GI . Patient has been denying any respiratory complaints. During the course the patient's ED evaluation was noted that she did have a UTI with no prior cultures available. Patient had a CT scan given her abdominal pain subsequent back pain that she relayed. Patient CT scan was concerning for descending infection and left Cesar. Patient was started on the most appropriate antibiotics. Patient's bedside ultrasound did not reveal any pericholecystic fluid. Patient had no CT evidence of acute cholecystitis. Patient has minimal tenderness in the right upper quadrant. Patient was given 2 L of fluid. Patient's lactate was mildly elevated. Patient did meet SIRS and sepsis criteria have the patient did not meet severe sepsis or septic shock. Patient did not require the 30 mL/kg fluid bolus. Patient will be admitted to hospital service for further evaluation of current acute infection and symptom resolution. Patient did get a screening head CT given her history of aneurysm and now headache however the headache appears to be improved after symptomatic treatment in the ED. There is low suspicion or concerns for intracranial pathology and the patient's head CT was negative. - Lab Data Lab results reviewed: Yes I reviewed the patient's lab results. Result diagrams: 03/28/18 17:21 18 17:21 Lab Results 03/28/1818 18 Range/Units 17:21 17:21 17:21 WBC 8.1 (4.3-11.1) K/mcL RBC 5.07 H (3.82-4.97) M/mcL Hgb 15.3 (11.5-15.4) g/dL Hct 45.1 H (35.3-44.9) % MCV 89.0 (83.0-100.0) fL MCH 30.2 (28.0-33.3) pg MCHC 33.9 (31.6-35.5) g/dL RDW 12.9 (11.5-14.5) % Plt Count 200 (140-400) K/mcL MPV 10.4 (9.4-12.4) fL Immature Gran % 0.2 (0-4) % Seg Neutrophils % 78.1 % Lymphocytes % 12.4 % Monocytes % 8.6 % Eosinophils % 0.2 % Basophils % 0.5 % Neutrophils # 6.3 (1.6-8.9) K/mcL Lymphocytes # 1.0 (0.6-4.6) K/mcL Monocytes # 0.7 (0.0-1.3) K/mcL Eosinophils # 0.0 (0.0-0.6) K/mcL Basophils # 0.0 (0.0-0.2) K/mcL PT 13.2 H (9.4-12.1) Seconds INR 1.2 Sodium 134 L (136-145) mEq/L Potassium 4.2 (3.5-5.1) mEq/L Chloride 102 (98-107) mEq/L Carbon Dioxide 20 L (23-29) mEq/L BUN 11 (8-23) mg/dL Creatinine 1.03 (0.60-1.20) mg/dL Est GFR ( Amer) > 60 (> 60) Est GFR (Non-Af Amer) 54 L (> 60) BUN/Creatinine Ratio 11 (6-26) Glucose 223 H (70-105) mg/dL Calculated Osmolality 284 (280-300) Lactic Acid (0.5-2.2) mmol/L Calcium 9.6 (8.6-10.3) mg/dL Total Bilirubin 1.2 H (0.3-1.0) mg/dL Direct Bilirubin 0.4 H (0.0-0.2) mg/dL Indirect Bilirubin 0.8 (0.0-1.2) mg/dL AST 16 (13-39) Units/L ALT 16 (7-52) Units/L Alkaline Phosphatase 76 (34-104) Units/L Troponin I < 0.03 (< 0.04) ng/mL Serum Total Protein 8.0 (6.4-8.9) g/dL Albumin 4.2 (3.5-5.7) g/dL Globulin 3.8 H (2.4-3.5) g/dL Albumin/Globulin Ratio 1.1 (1.1-2.2) Lipase 13 (11-82) Units/L Urine Color (Yellow) Urine Clarity (Clear) Urine pH (5.0-8.0) pH Units Ur Specific [place] (1.010-1.025) Urine Protein (Neg-Trace) mg/dL Urine Glucose (UA) (Normal) mg/dL Urine Ketones (Negative) mg/dL Urine Blood (Negative) Urine Nitrite (Negative) Urine Bilirubin (Negative) Urine Urobilinogen (Normal) mg/dL Ur Leukocyte Esterase (Negative) Urine Microscopic RBC (0-3) per hpf Urine Microscopic WBC (0-3) per hpf Ur Squamous Epith Cells (None-Few) per lpf Urine Bacteria (None-Few) per hpf Ur Culture Indicated? (NO) 03/28/18 03/28/18 Range/Units 17:21 17:30 WBC (4.3-11.1) K/mcL RBC (3.82-4.97) M/mcL Hgb (11.5-15.4) g/dL Hct (35.3-44.9) % MCV (83.0-100.0) fL MCH (28.0-33.3) pg MCHC (31.6-35.5) g/dL RDW (11.5-14.5) % Plt Count (140-400) K/mcL MPV (9.4-12.4) fL Immature Gran % (0-4) % Seg Neutrophils % % Lymphocytes % % Monocytes % % Eosinophils % % Basophils % % Neutrophils # (1.6-8.9) K/mcL Lymphocytes # (0.6-4.6) K/mcL Monocytes # (0.0-1.3) K/mcL Eosinophils # (0.0-0.6) K/mcL Basophils # (0.0-0.2) K/mcL PT (9.4-12.1) Seconds INR Sodium (136-145) mEq/L Potassium (3.5-5.1) mEq/L Chloride (98-107) mEq/L Carbon Dioxide (23-29) mEq/L BUN (8-23) mg/dL Creatinine (0.60-1.20) mg/dL Est GFR ( Amer) (> 60) Est GFR (Non-Af Amer) (> 60) BUN/Creatinine Ratio (6-26) Glucose (70-105) mg/dL Calculated Osmolality (280-300) Lactic Acid 2.7 H (0.5-2.2) mmol/L Calcium (8.6-10.3) mg/dL Total Bilirubin (0.3-1.0) mg/dL Direct Bilirubin (0.0-0.2) mg/dL Indirect Bilirubin (0.0-1.2) mg/dL AST (13-39) Units/L ALT (7-52) Units/L Alkaline Phosphatase (34-104) Units/L Troponin I (< 0.04) ng/mL Serum Total Protein (6.4-8.9) g/dL Albumin (3.5-5.7) g/dL Globulin (2.4-3.5) g/dL Albumin/Globulin Ratio (1.1-2.2) Lipase (11-82) Units/L Urine Color Dark Yellow (Yellow) Urine Clarity Turbid A (Clear) Urine pH 5.0 (5.0-8.0) pH Units Ur Specific [place] 1.024 (1.010-1.025) Urine Protein 100 H (Neg-Trace) mg/dL Urine Glucose (UA) Normal (Normal) mg/dL Urine Ketones Trace H (Negative) mg/dL Urine Blood Large H (Negative) Urine Nitrite Positive A (Negative) Urine Bilirubin Small H (Negative) Urine Urobilinogen 2.0 H (Normal) mg/dL Ur Leukocyte Esterase Large H (Negative) Urine Microscopic RBC 3-5 H (0-3) per hpf Urine Microscopic WBC TNTC H (0-3) per hpf Ur Squamous Epith Cells Many H (None-Few) per lpf Urine Bacteria Few (None-Few) per hpf Ur Culture Indicated? NO. A (NO) - Radiology Data Radiology results reviewed: Yes I reviewed the patient's radiology results. Abdomen/Pelvis CT 03/28/18 17:15 IMPRESSION: 1. Mild urothelial thickening along the left renal pelvis, which may be related to acute or remote infection or inflammation. Bladder wall thickening and adjacent inflammatory changes present, which can be seen with acute cystitis, although this appears similar to prior exam. 2. Extensive diverticulosis without evidence of diverticulitis. 3. Hepatic steatosis. 4. Possible layering gallbladder sludge or tiny stones. No evidence of acute cholecystitis. D/ / Rob Tai MD / Rob Tai MD Interpreting Provider: Rob Tai MD Head CT 03/28/18 17:23 IMPRESSION: No acute intracranial abnormality. D/ / Mahendra Howell MD / Mahendra Howell MD Interpreting Provider: Mahendra Howell MD - EKG Data EKG #1 EKG attestation: Yes I reviewed and interpreted this EKG. EKG shows normal: sinus rhythm Rate: tachycardia Rhythm: NSR [place]/QRS: left axis deviation, LBBB T wave inversions noted in: I, aVL When compared to previous EKG there are: no significant changes Interpretation: no acute changes, unchanged when compared to prior tracing (date ), nonspecific ST-T wave changes S.B.A.RSandra - S.B.A.RSandra Situation: Demographics Background: Presenting Complaint Assessment: Vital Signs, Course and respsone to treatment, Patient/Family Expectation Recommendation: Barrier(s) to disposition, Recommendation based on pending studies, treatments, or consults S.B.A.RSandra Report Given to: Dr. Lisandro Worrell Repor Time: 18:45
[2018-03-28 17:32] LABS: Basophils % 0.5 %; Eosinophils % 0.2 %; Hematocrit 45.1 % (35.3-44.9); Hemoglobin 15.3 g/dL (11.5-15.4); Immature Granulocytes % 0.2 % (0-4); Lymphocytes % 12.4 %; Mean Corpuscular HGB Conc 33.9 g/dL (31.6-35.5); Mean Corpuscular Hemoglobin 30.2 pg (28.0-33.3); Mean Platelet Volume 10.4 fL (9.4-12.4); Monocytes # 0.7 K/mcL (0.0-1.3); Monocytes % 8.6 %; Neutrophils # 6.3 K/mcL (1.6-8.9); Platelet Count 200 K/mcL (140-400); Red Blood Count 5.07 M/mcL (3.82-4.97); Red Cell Distribution Width 12.9 % (11.5-14.5); Segmented Neutrophils % 78.1 %
[2018-03-28 17:37] LABS: Bilirubin,Urine Small (Negative); Blood,Urine Large (Negative); Clarity,Urine Turbid (Clear); Color,Urine Dark Yellow (Yellow); Glucose,Urine (UA) Normal (Normal); Ketones,Urine Trace mg/dL (Negative); Leukocyte Esterase,Urine Large (Negative); Nitrite,Urine Positive (Negative); Protein,Urine 100 mg/dL (Neg-Trace); Specific Gravity,Urine 1.024 (1.010-1.025)
[2018-03-28 17:38] LABS: Bacteria,Urine Few per hpf (None-Few); Squamous Epithelial Cell,Urine Many per lpf (None-Few); WBC,Urine TNTC per hpf (0-3)
[2018-03-28 17:39] LABS: INR 1.2; Prothrombin Time 13.2 Seconds (9.4-12.1)
[2018-03-28 17:54] LABS: Alanine Aminotransferase 16 Units/L (7-52); Albumin 4.2 g/dL (3.5-5.7); Albumin/Globulin Ratio 1.1 (1.1-2.2); Alkaline Phosphatase 76 Units/L (34-104); Aspartate Amino Transferase 16 Units/L (13-39); BUN/Creatinine Ratio 11 (6-26); Bilirubin,Direct 0.4 mg/dL (0.0-0.2); Bilirubin,Indirect 0.8 mg/dL (0.0-1.2); Bilirubin,Total 1.2 mg/dL (0.3-1.0); Blood Urea Nitrogen 11 mg/dL (8-23); Calcium 9.6 mg/dL (8.6-10.3); Carbon Dioxide 20 mEq/L (23-29); Chloride 102 mEq/L (98-107); Globulin 3.8 g/dL (2.4-3.5); Glucose 223 mg/dL (70-105); Lipase 13 Units/L (11-82); Osmolality,Calculated 284 (280-300); Potassium 4.2 mEq/L (3.5-5.1); Sodium 134 mEq/L (136-145); Troponin I < 0.03 ng/mL (< 0.04); eGFR For African Americans > 60 (> 60); eGFR For Non-African Americans 54 (> 60)
[2018-03-28] MEDS ORDERED: cefTRIAXone 1,000 MG in Water for inj. (sterile) 20 ML 10 ML IVP ONE (18:05)
[2018-03-28] MEDS ORDERED: Naloxone 0.4 MG/ML INJ IVP PRN (19:12)
--- NOTE | 2018-03-28 19:26 | Internal Med History&Physical ---
<Jennifer Delgadillo Femi - Last Filed: 03/28/18 19:57> Date of Encounter: 03/28/18 Time of Encounter: 19:21 Internal Medicine - H&P: HPI Chief complaint: Abdominal Pain Admitted From: Home Plans for Post Hospital Care: Home History of present illness: Ms. Hotl is a 62 year old female with hx of HTN, brain anuerysm, cva, and HLD. The patient is here with c/o abdominal pain that began 4 days ago. She indicated the most pain in the lower pelvic region. sShe was also having chills.. The patient denied any dysuria, hematuria, or frequency. The patient UA was + for protein 100, large leuko-esterase, wbc's 3-5, and + nitrites. The patient also septic, with lactate at 2.7. IVF's given in the ED. The patient was started on rocephin, will continue daily. CXR was negative, head ct also negative and was done for c/o SCHULER and hx of brain anuerysm . The patient has hx of cva, and has some tremors in her face. the CT of the abd showed thickness to left renal pelvis and bladder wall which is likely related to UTI. It also showed hepatic steatosis, diverticulosis and possible layering of gb sludge. The wbc is 8.1. Fentanyl was effective for her pain in the ED. Will give oral oxycodone prn. Past Med Surg Social Fam HX - Past Medical History Medical history: hyperlipidemia, hypertension Additional medical history: broken collar bone Psychiatric history: anxiety, depression - Past Surgical History Surgical History: hysterectomy Additional surgical history: repair brain aneurysm, - Social History Smoking Status: Never smoker Smokeless Tobacco Status: No Alcohol use: none Drug use: none - Family History Mother Living Status: Hx Family Cancer: Yes Internal Medicine - H&P: Meds Albuterol Sulfate [Ventolin Hfa] 1 puff IH DAILY PRN 01/13/18 [History] Aspirin [Lo-Dose Aspirin EC] 81 mg PO DAILY 01/13/18 [History] Atenolol [Tenormin] 50 mg PO DAILY 01/13/18 [History] Atorvastatin [Lipitor] 40 mg PO HS 01/13/18 [History] Citalopram [CeleXA] 20 mg PO DAILY 01/13/18 [History] Ketoconazole Shampoo [Nizoral Shampoo] 1 appl TP DAILY 01/13/18 [History] Meloxicam [Mobic] 15 mg PO DAILY 01/13/18 [History] Metformin HCl [Metformin HCl ER] 500 mg PO DAILY 01/13/18 [History] Ondansetron HCl [Zofran] 4 mg PO Q8HR PRN 01/13/18 [History] SUMAtriptan Succinate [Imitrex] 100 mg PO DAILY PRN 01/13/18 [History] Tizanidine HCl 4 mg PO Q8H PRN 01/13/18 [History] hydrOXYzine HCl [Hydroxyzine HCl] 25 mg PO TID 01/13/18 [History] hydroCHLOROthiazide [Hydrochlorothiazide] 25 mg PO DAILY 01/13/18 [History] Amoxicillin/Clavulanate [Augmentin] 875 mg PO BIDWM 10 Days #20 tablet 01/14/18 [Rx] Cyclobenzaprine [Flexeril] 10 mg PO TID PRN 7 Days #21 tablet 01/14/18 [Rx] Ramiro/Poly/HC *EAR* SOLN [Cortisporin *EAR* SOLN] 2 drop RIGHT EAR QID #1 bottle 01/14/18 [Rx] 3 Allergy/AdvReac Type Severity Reaction Status Date / Time acetaminophen [From Vicodin] Allergy Hives Verified 01/13/18 10:52 codeine Allergy Hives Verified 01/13/18 10:52 hydrocodone [From Vicodin] Allergy Hives Verified 01/13/18 10:52 All Systems PM: A 10-system review of systems was performed and is negative for pertinent findings except as documented above in the HPI. - Constitutional Constitutional: chills, weakness, no fever(s), no night sweats - EENT Eyes: no change in vision, no discharge, no pain, no photophobia Ears: no ear discharge, no ear pain, no tinnitus Nose, mouth and throat: no dysphagia, no nasal discharge, no neck pain, no sore throat - Cardiovascular Cardiovascular ROS IM: no chest pain, no diaphoresis, no dyspnea, no lightheadedness, no palpitations, no syncope - Respiratory Respiratory: no cough, no dyspnea, no wheezing, no excessive phlegm production - Gastrointestinal Gastrointestinal: abdominal pain, no diarrhea, no hematemesis, no hematochezia, no melena, no nausea, no vomiting - Genitourinary Genitourinary: no change in urinary stream, no dysuria, no flank pain, no hematuria - Musculoskeletal Musculoskeletal ROS IM: no numbness, no tingling - Integumentary Integumentary IM: no rash, no unusual bruising - Neurological Neurological ROS: no confusion, no convulsions, no focal weakness, no numbness, no tingling, no tremor(s) - Hematologic/Lymphatic Hematologic/Lymphatic: no easy bruising - Constitutional Vitals: Temp Pulse Resp BP Pulse Ox 99.9 F H 91 18 137/61 95 03/28/18 19:02 03/28/18 18:21 03/28/18 19:02 03/28/18 19:02 03/28/18 18:21 General appearance: Present: A&O X 3, answers questions appropriately - Head Head exam: Present: atraumatic, normocephalic - Eye Eye exam: Present: PERRL, conjuntiva pink, sclera anicteric Pupils: Present: PERRL - Neck Neck exam general surgery: Present: supple, trachea midline. Absent: lymphadenopathy - Respiratory Respiratory exam: Present: CTAB. Absent: accessory muscle use, rales, rhonchi, wheezes - Cardiovascular Cardiovascular exam: Present: RRR, +S1, +S2. Absent: diastolic murmur, gallop, rubs, systolic murmur - GI/Abdominal GI/Abdominal exam: Present: normal bowel sounds, soft, tenderness (Pelvic region ), no peritoneal signs. Absent: distended - Extremities Exam Extremities exam: Present: normal inspection, warm, radial pulses palpable and symmetrical. Absent: calf tenderness, cyanotic, pedal edema - Neurological Exam Neurological exam: Present: CN II-XII intact, oriented X3, no focal deficits. Absent: pronater drift, facial droop, speech deficit - Skin Skin exam: Present: dry, intact Internal Med - H&P Results - Labs CBC & Chem 7: 03/28/18 17:21 03/28/18 17:21 - Assessment and plan (1) Sepsis Current Visit: No Status: Acute Assessment and plan: The patient will have lactic acid until wnl. The lactic is likely elevated d/t pyelonephritis. IVF's Iv rocephin Monitor labs daily Qualifiers: Sepsis type: sepsis due to unspecified organism Qualified Code(s): A41.9 - Sepsis, unspecified organism (2) Abdominal pain Current Visit: No Status: Acute Assessment and plan: Abdominal pain is likely a result of the pyelonephritis. Continue the IV rocephin Percocet po prn pain Diverticulosis found on CT Qualifiers: Abdominal location: lower abdomen, unspecified Qualified Code(s): R10.30 - Lower abdominal pain, unspecified (3) Pyelonephritis Current Visit: No Status: Acute Assessment and plan: Iv rocephin Continue IVF's (4) Headache Current Visit: No Status: Resolved Assessment and plan: Ct of head was negative acute abnormality Give tylenol prn orally q6h prn Qualifiers: Headache type: unspecified Headache chronicity pattern: acute headache Intractability: not intractable Qualified Code(s): R51 - Headache (5) Hypertension Current Visit: No Status: Chronic Assessment and plan: Bp is uncontrolled Will continue home medications, Atenolol and HCTZ Qualifiers: Hypertension type: essential hypertension Qualified Code(s): I10 - Essential (primary) hypertension - Time Spent With Patient Total time spent is greater than 50% in coordination of care (as documented) at patient's floor/unit and/or counseling patient: <Colleen Tejadajenae Sofia - Last Filed: 03/28/18 20:30> Date of Encounter: 03/28/18 Internal Medicine - H&P: HPI History of present illness: Ms. Holt is a 62 year old female All Systems PM: A 10-system review of systems was performed and is negative for pertinent findings except as documented above in the HPI. - Constitutional Vitals: Temp Pulse Resp BP Pulse Ox 98.8 F 75 18 121/72 94 03/28/18 19:35 03/28/18 19:35 03/28/18 19:35 03/28/18 19:35 03/28/18 19:35 Internal Med - H&P Results - Labs CBC & Chem 7: 03/28/18 17:21 03/28/18 17:21 - Attending Attestation I have personally performed a face to face evaluation on this patient. I have reviewed and agree with the care plan. History and Exam by me shows: Patient reports 4 days history of fevers chills associated with suprapubic and predominantly right more than left flank pain. Denies any dysuria but reports frequency and nocturia. Comorbid history of hypertension, hyperlipidemia, is on metformin but patient does not know that she has diabetes General - AAO x 3 Psych - Appropriate affect/speech. No agitation Eyes - MAGO. Eye lids intact. No scleral icterus Heart - Sinus. RRR. S1 and S2 present. No added HS/murmurs appreciated. No elevated JVD appreciated. Lung - Adequate air entry b/l, No crackles/wheezes appreciated GI - Soft, non-tender. No hepatosplenomegaly/ascites. BS+ - suprapubic and right more than left flank tenderness Assessment and plan UTI with cystitis and possible right pyelonephritis - Empiric IV Rocephin - pending urine culture We will check A1c given that patient does not know that she has diabetes on metformin - Time Spent With Patient Total time spent is greater than 50% in coordination of care (as documented) at patient's floor/unit and/or counseling patient:
[2018-03-28] MEDS ORDERED: *HR* FentaNYL (PF) 100 MCG/2 ML VIAL IVP PRN (19:49)
[2018-03-28] MEDS ORDERED: SUMAtriptan succinate 50 MG TABLET PO PRN (20:23)
[2018-03-28] MEDS: *HR* OxyCODONE/APAP 7.5/325 TABLET PO PRN (20:33)
[2018-03-28] MEDS: 0.9 % Sodium Chloride 1,000 ML IVC SCH (20:33)
[2018-03-28] MEDS ORDERED: Ondansetron 4 MG/2 ML VIAL IVP PRN (20:51)
[2018-03-28] MEDS: hydrOXYzine pamoate 25 MG CAPSULE PO SCH (21:18)
[2018-03-29 01:27] LABS: Basophils % 0.5 %; Eosinophils # 0.1 K/mcL (0.0-0.6); Hematocrit 44.1 % (35.3-44.9); Hemoglobin 14.1 g/dL (11.5-15.4); Immature Granulocytes % 0.4 % (0-4); Lymphocytes # 1.7 K/mcL (0.6-4.6); Lymphocytes % 23.2 %; Mean Corpuscular Hemoglobin 29.8 pg (28.0-33.3); Mean Corpuscular Volume 93.2 fL (83.0-100.0); Monocytes # 0.8 K/mcL (0.0-1.3); Monocytes % 10.7 %; Neutrophils # 4.7 K/mcL (1.6-8.9); Platelet Count 195 K/mcL (140-400); Red Blood Count 4.73 M/mcL (3.82-4.97); Red Cell Distribution Width 13.1 % (11.5-14.5); Segmented Neutrophils % 64.2 %
[2018-03-29 01:52] LABS: BUN/Creatinine Ratio 11 (6-26); Blood Urea Nitrogen 10 mg/dL (8-23); Carbon Dioxide 24 mEq/L (23-29); Chloride 108 mEq/L (98-107); Glucose 118 mg/dL (70-105); Osmolality,Calculated 292 (280-300); Potassium 4.9 mEq/L (3.5-5.1); Sodium 141 mEq/L (136-145); eGFR For African Americans > 60 (> 60); eGFR For Non-African Americans > 60 (> 60)
[2018-03-29] MEDS: *HR* OxyCODONE/APAP 7.5/325 TABLET PO PRN ×3 (04:03→20:05)
[2018-03-29] MEDS: Acetaminophen 325 MG TABLET PO PRN ×2 (04:03→20:05)
[2018-03-29] MEDS: hydroCHLOROthiazide 25 MG TABLET PO SCH (08:45)
[2018-03-29] MEDS: hydrOXYzine pamoate 25 MG CAPSULE PO SCH ×3 (08:45→20:05)
[2018-03-29] MEDS: Aspirin Enteric Coated 81 MG Tablet PO SCH (08:45)
[2018-03-29] MEDS ORDERED: cefTRIAXone 1,000 MG in Water for inj. (sterile) 20 ML 10 ML IVP SCH (09:00)
[2018-03-29 09:32] LABS: Estimated Average Glucose 123 mg/dl; Hemoglobin A1C 5.9 %
[2018-03-29 10:03] LABS: Acinetobacter baumannii by PCR Not Detected (Not Detect); Candida albicans by PCR Not Detected (Not Detect); Candida glabrata by PCR Not Detected (Not Detect); Candida krusei by PCR Not Detected (Not Detect); Candida parapsilosis by PCR Not Detected (Not Detect); Candida tropicalis by PCR Not Detected (Not Detect); Enterococcus by PCR Not Detected (Not Detect); Escherichia coli by PCR ***DETECTED*** (Not Detect); Klebsiella oxytoca by PCR Not Detected (Not Detect); Klebsiella pneumoniae by PCR Not Detected (Not Detect); Pseudomonas aeruginosa by PCR Not Detected (Not Detect); Serratia marcescens by PCR Not Detected (Not Detect); Staphylococcus aureus by PCR Not Detected (Not Detect); Streptococcus agalactiae(B)PCR Not Detected (Not Detect); Streptococcus by PCR Not Detected (Not Detect); Streptococcus pneumoniae PCR Not Detected (Not Detect); Streptococcus pyogenes (A) PCR Not Detected (Not Detect); blaKPC Carbapenem-Resist Gene Not Detected (Not Detect); mecA Methicillin-Resist Gene Not Detected (Not Detect); vanA/B Vancomycin-Resist Genes Not Detected (Not Detect)
--- NOTE | 2018-03-29 10:06 | Electrocardiograph Report ---
[place] [id number] Test Date: 2018-03-28 Pat Name: Merry Holt Department: 103 Room: 3A43 Gender: F Composite Worker: EKP : 1955 Requested By: Kevin Livingston Order Number: [id number] Reading MD: Po Lee Measurements Intervals [place] Rate: 93 P: 46 MD: 150 QRS: -11 QRSD: 122 T: 97 QT: 352 QTc: 403 Interpretive Statements SINUS RHYTHM LEFT BUNDLE BRANCH BLOCK Electronically Signed On 03-29-2018 10:05:07 EDT by Po Lee
[2018-03-29] MEDS: 0.9 % Sodium Chloride 1,000 ML IVC SCH (12:54)
--- NOTE | 2018-03-29 14:30 | Internal Med Progress Note ---
Date of Encounter: 03/29/18 Time of Encounter: 14:29 - Assessment and plan (1) Bacteremia Current Visit: Yes Status: Acute Assessment and plan: Blood culture positive for gram-negative bacteria Escherichia coli but no further sensitivity available. Zosyn antibiotic is started. Underlying source of infection urine most likely. Follow up the blood culture report. (2) UTI (urinary tract infection) Current Visit: Yes Status: Acute Assessment and plan: Continue above-mentioned antibiotic. Urine culture report is awaited. No hydronephrosis Qualifiers: Urinary tract infection type: acute cystitis Hematuria presence: without hematuria Qualified Code(s): N30.00 - Acute cystitis without hematuria Code(s): N39.0 - Urinary tract infection, site not specified SNOMED Code(s): 38645876 (3) Hypertension Current Visit: No Status: Chronic Assessment and plan: Monitor her BP in continue current medicine Qualifiers: Hypertension type: essential hypertension Qualified Code(s): I10 - Essential (primary) hypertension (4) DVT prophylaxis Current Visit: No Status: Acute Assessment and plan: SCDs - Time Spent With Patient Total time spent is greater than 50% in coordination of care (as documented) at patient's floor/unit and/or counseling patient: 25 - 35 minutes - Subjective Interval history: Complaint of suprapubic pain especially left side but better today. Patient denies fever, chills, headache, dizziness, vomiting, chest pain, short of breath , diarrhea. Better urinary complaint. Last BM yesterday. - Constitutional Vitals: Temp Pulse Resp BP Pulse Ox 98.1 F 63 12 115/71 92 03/29/18 11:13 03/29/18 11:13 03/29/18 11:13 03/29/18 11:13 03/29/18 11:13 General appearance: Present: A&O X 3, answers questions appropriately Exam: General appearance: No acute distress, A&O X 3 Head exam: Atraumatic Eye exam: EOMI, PERRLA ENT exam: Moist oral mucosa Neck nontender, supple Respiratory exam: Clear to auscultation bilaterally Cardiovascular exam: Regular rate and rhythm, no systolic murmur Abdominal exam: Soft, , suprapubic tenderness, nondistended, positive bowel sounds . No CVA tenderness Extremities exam: No calf tenderness, no pedal edema Present: Skin-no rash, warm, dry, intact Neurological exam: Alert, awake, oriented 3, CN II-XII intact, no focal deficits. No facial droop. Normal speech. Internal Medicine: Result - Labs CBC & Chem 7: 03/29/18 01:08 03/29/18 01:08 Labs: Short CBC 03/29/18 Range/Units 01:08 WBC 7.4 (4.3-11.1) K/mcL Hgb 14.1 (11.5-15.4) g/dL Hct 44.1 (35.3-44.9) % Plt Count 195 (140-400) K/mcL Neutrophils # 4.7 (1.6-8.9) K/mcL BMP 03/29/18 01:08 Sodium 141 Potassium 4.9 Chloride 108 H Carbon Dioxide 24 BUN 10 Creatinine 0.90 Glucose 118 H Calcium 9.0 - ABG Interpretation ABG results: PT/INR, D-dimer PT 13.2 Seconds (9.4-12.1) H 03/28/18 17:21 Consult Discharge Plan - Plan Referrals: Hari Olguin DO [Primary Care Provider] -
[2018-03-29] MEDS ORDERED: Piperacillin/Tazobactam 3.375 GM in 0.9 % Sodium Chloride Mini Bag 100 ML IVPB SCH (16:00)
[2018-03-30] MEDS: *HR* OxyCODONE/APAP 7.5/325 TABLET PO PRN ×2 (04:23→19:54)
[2018-03-30] MEDS: Acetaminophen 325 MG TABLET PO PRN (04:24)
[2018-03-30 06:44] LABS: Basophils % 0.7 %; Eosinophils # 0.1 K/mcL (0.0-0.6); Hematocrit 36.8 % (35.3-44.9); Immature Granulocytes % 0.4 % (0-4); Lymphocytes # 0.9 K/mcL (0.6-4.6); Lymphocytes % 20.4 %; Mean Corpuscular HGB Conc 32.9 g/dL (31.6-35.5); Mean Corpuscular Hemoglobin 30.2 pg (28.0-33.3); Mean Corpuscular Volume 91.8 fL (83.0-100.0); Monocytes # 0.4 K/mcL (0.0-1.3); Monocytes % 8.4 %; Neutrophils # 3.1 K/mcL (1.6-8.9); Platelet Count 154 K/mcL (140-400); Red Blood Count 4.01 M/mcL (3.82-4.97); Red Cell Distribution Width 13.2 % (11.5-14.5); Segmented Neutrophils % 68.1 %
[2018-03-30 06:45] LABS: Hemoglobin 12.1 g/dL (11.5-15.4)
[2018-03-30 07:05] LABS: BUN/Creatinine Ratio 15 (6-26); Blood Urea Nitrogen 11 mg/dL (8-23); Calcium 8.8 mg/dL (8.6-10.3); Carbon Dioxide 24 mEq/L (23-29); Chloride 104 mEq/L (98-107); Glucose 116 mg/dL (70-105); Osmolality,Calculated 284 (280-300); Potassium 3.7 mEq/L (3.5-5.1); Sodium 137 mEq/L (136-145); eGFR For African Americans > 60 (> 60); eGFR For Non-African Americans > 60 (> 60)
--- NOTE | 2018-03-30 08:13 | Internal Med Progress Note ---
Date of Encounter: 03/30/18 Time of Encounter: 08:10 - Assessment and plan (1) Bacteremia Current Visit: Yes Status: Acute Assessment and plan: Blood culture positive for gram-negative bacteria Escherichia coli but no further sensitivity available yet. I tried to call microbiology but no response but will follow later in the day. Continue Rocephin for now and will change antibiotic based on sensitivity report. Patient had a spike in temperature therefore blood culture, urine culture ordered. Patient also has new onset of cough with a spike temperatures therefore chest x-ray ordered to rule out pneumonia. Incentive spirometry, DuoNeb started. Will give the oxygen wean off trial. (2) Pneumonia Current Visit: Yes Status: Acute Assessment and plan: Hospital acquired. Reviewed chest x-ray with positive finding. Added Levaquin , DuoNeb and incentive spirometry. Continue to monitor. Qualifiers: Pneumonia type: due to unspecified organism Laterality: right Lung location: middle lobe of lung Qualified Code(s): J18.1 - Lobar pneumonia, unspecified organism Code(s): J18.9 - Pneumonia, unspecified organism SNOMED Code(s): 554622329 (3) UTI (urinary tract infection) Current Visit: Yes Status: Acute Assessment and plan: Repeat urine culture today as patient has spiked in the temperature. Better suprapubic pain. No hydronephrosis Qualifiers: Urinary tract infection type: acute cystitis Hematuria presence: without hematuria Qualified Code(s): N30.00 - Acute cystitis without hematuria Code(s): N39.0 - Urinary tract infection, site not specified SNOMED Code(s): 71160375 (4) Hypertension Current Visit: No Status: Chronic Assessment and plan: Better controlled blood pressure. A spike in blood pressure today morning when she also spiked a temperature and also had the panic attack but better now. Monitor her BP in continue current medicine Qualifiers: Hypertension type: essential hypertension Qualified Code(s): I10 - Essential (primary) hypertension (5) DVT prophylaxis Current Visit: No Status: Acute Assessment and plan: SCDs. Encouraged the patient for ambulation. Also consulted PT. - Time Spent With Patient Total time spent is greater than 50% in coordination of care (as documented) at patient's floor/unit and/or counseling patient: - Subjective Interval history: Patient is spiked a temperature more than 101 last night and also complained of new onset of cough. Suprapubic pain almost resolved. Patient is still has chronic lower middle and left-sided back pain. Review the lab with normal white count and blood culture with Escherichia coli but no final sensitivity report available. I tried to contact microbiology but no response. Patient denies headache, dizziness, vomiting, chest pain, short of breath, diarrhea. Better urinary complaint. - Constitutional Vitals: Temp Pulse Resp BP Pulse Ox 98.8 F 61 12 121/71 95 03/30/18 07:28 03/30/18 07:28 03/30/18 07:28 03/30/18 07:28 03/30/18 07:28 General appearance: Present: A&O X 3, answers questions appropriately Exam: General appearance: No acute distress, A&O X 3. at bedside Head exam: Atraumatic Eye exam: EOMI, PERRLA ENT exam: Moist oral mucosa Neck nontender, supple Respiratory exam: Slight dimness breath sound bibasilar Cardiovascular exam: Regular rate and rhythm, no systolic murmur Abdominal exam: Soft, nontender, nondistended, positive bowel sounds Extremities exam: No calf tenderness, no pedal edema Present: Back-no a spine point tenderness. Diffuse middle and left-sided back pain has been chronic as per patient Skin-no rash, warm, dry, intact Neurological exam: Alert, awake, oriented 3, CN II-XII intact, no focal deficits. No facial droop. Normal speech. Normal gait. Internal Medicine: Result - Labs CBC & Chem 7: 03/30/18 05:20 03/30/18 05:20 Labs: Short CBC 03/30/18 Range/Units 05:20 WBC 4.5 (4.3-11.1) K/mcL Hgb 12.1 D (11.5-15.4) g/dL Hct 36.8 (35.3-44.9) % Plt Count 154 (140-400) K/mcL Neutrophils # 3.1 (1.6-8.9) K/mcL BMP 03/30/18 05:20 Sodium 137 Potassium 3.7 Chloride 104 Carbon Dioxide 24 BUN 11 Creatinine 0.71 Glucose 116 H Calcium 8.8 - ABG Interpretation ABG results: PT/INR, D-dimer PT 13.2 Seconds (9.4-12.1) H 03/28/18 17:21 - VTE Documentation of Mechanical Device: Intermittent pneumatic compression device Consult Discharge Plan - Plan Referrals: Hari Olguin DO [Primary Care Provider] -
[2018-03-30] MEDS ORDERED: Ipratropium/Albuterol Neb 3 ML IH PRN (08:17)
[2018-03-30] MEDS: hydroCHLOROthiazide 25 MG TABLET PO SCH (08:41)
[2018-03-30] MEDS: hydrOXYzine pamoate 25 MG CAPSULE PO SCH ×2 (08:42→16:12)
[2018-03-30] MEDS: Aspirin Enteric Coated 81 MG Tablet PO SCH (08:42)
[2018-03-30] MEDS ORDERED: cefTRIAXone 1,000 MG in Water for inj. (sterile) 20 ML 10 ML IVP SCH (09:00)
[2018-03-30] MEDS ORDERED: Levofloxacin 750 MG/150 ML 750 MG/150 ML BAG IVPB SCH (17:00)
[2018-03-30] MEDS: Levofloxacin 750 MG/150 ML 750 MG/150 ML BAG IVPB SCH (19:51)
[2018-03-31 06:29] LABS: Basophils % 0.4 %; Eosinophils # 0.2 K/mcL (0.0-0.6); Eosinophils % 3.8 %; Hematocrit 37.1 % (35.3-44.9); Hemoglobin 12.5 g/dL (11.5-15.4); Immature Granulocytes % 0.9 % (0-4); Immature Platelets 5.3 % (1.1-6.1); Lymphocytes # 1.6 K/mcL (0.6-4.6); Lymphocytes % 35.8 %; Mean Corpuscular HGB Conc 33.7 g/dL (31.6-35.5); Mean Corpuscular Hemoglobin 30.5 pg (28.0-33.3); Mean Corpuscular Volume 90.5 fL (83.0-100.0); Mean Platelet Volume 10.5 fL (9.4-12.4); Monocytes # 0.5 K/mcL (0.0-1.3); Neutrophils # 2.2 K/mcL (1.6-8.9); Platelet Count 170 K/mcL (140-400); Red Cell Distribution Width 12.7 % (11.5-14.5); Segmented Neutrophils % 49.1 %
--- NOTE | 2018-03-31 08:15 | Internal Med Progress Note ---
Date of Encounter: 03/31/18 Time of Encounter: 08:13 - Assessment and plan (1) Bacteremia Current Visit: Yes Status: Acute Assessment and plan: Blood culture positive for gram-negative bacteria Escherichia coli sensitive to Levaquin therefore Rocephin stopped and started Levaquin. Repeat blood culture today and will follow the report in 24-48 hours to make discharge plan. (2) Pneumonia Current Visit: Yes Status: Acute Assessment and plan: Hospital acquired. Right middle lung. Reviewed chest x-ray with positive finding. Continue DuoNeb and incentive spirometry. Weaning oxygen trial Qualifiers: Pneumonia type: due to unspecified organism Laterality: right Lung location: middle lobe of lung Qualified Code(s): J18.1 - Lobar pneumonia, unspecified organism Code(s): J18.9 - Pneumonia, unspecified organism SNOMED Code(s): 228012487 (3) UTI (urinary tract infection) Current Visit: Yes Status: Acute Assessment and plan: Repeat urine culture -no result available. Continue same antibiotic Qualifiers: Urinary tract infection type: acute cystitis Hematuria presence: without hematuria Qualified Code(s): N30.00 - Acute cystitis without hematuria Code(s): N39.0 - Urinary tract infection, site not specified SNOMED Code(s): 53900450 (4) Hypertension Current Visit: No Status: Chronic Assessment and plan: Better controlled blood pressure. Qualifiers: Hypertension type: essential hypertension Qualified Code(s): I10 - Essential (primary) hypertension (5) DVT prophylaxis Current Visit: No Status: Acute Assessment and plan: SCDs. Encouraged the patient for ambulation. - Time Spent With Patient Total time spent is greater than 50% in coordination of care (as documented) at patient's floor/unit and/or counseling patient: 25 - 35 minutes - Subjective Interval history: No fever overnight and better cough but is still feel tired. No complain of suprapubic pain. Review the lab with normal white count and blood culture with Escherichia coli sensitive to Levaquin. Patient denies headache, dizziness, vomiting, chest pain, short of breath, diarrhea. Making good urine. - Constitutional Vitals: Temp Pulse Resp BP Pulse Ox 98.2 F 60 16 134/75 97 03/31/18 06:52 03/31/18 06:52 03/31/18 06:52 03/31/18 06:52 03/31/18 06:52 General appearance: Present: A&O X 3, answers questions appropriately Exam: General appearance: No acute distress, A&O X 3. at bedside Head exam: Atraumatic Eye exam: EOMI, PERRLA ENT exam: Moist oral mucosa Neck nontender, supple Respiratory exam: Rales on right lung Cardiovascular exam: Regular rate and rhythm, no systolic murmur Abdominal exam: Soft, nontender, nondistended, positive bowel sounds Extremities exam: No calf tenderness, no pedal edema Present: Skin-no rash, warm, dry, intact Neurological exam: Alert, awake, oriented 3, CN II-XII intact, no focal deficits. No facial droop. Normal speech. Normal gait. Internal Medicine: Result - Labs CBC & Chem 7: 03/31/18 06:04 03/30/18 05:20 Labs: Short CBC 03/31/18 Range/Units 06:04 WBC 4.5 (4.3-11.1) K/mcL Hgb 12.5 (11.5-15.4) g/dL Hct 37.1 (35.3-44.9) % Plt Count 170 (140-400) K/mcL Neutrophils # 2.2 (1.6-8.9) K/mcL - ABG Interpretation ABG results: PT/INR, D-dimer PT 13.2 Seconds (9.4-12.1) H 03/28/18 17:21 - Impressions Impressions Chest X-Ray 03/30/18 08:15 IMPRESSION: Possible developing opacity in the right middle lobe may represent developing pneumonia versus atelectasis. Recommend follow-up to resolution. D/ / 03/30/2018 09:46:59 Heriberto Miller MD / [facility] Interpreting Provider: Heriberto Miller MD - VTE Documentation of Mechanical Device: Intermittent pneumatic compression device Consult Discharge Plan - Plan Referrals: Hari Olguin DO [Primary Care Provider] -
[2018-03-31] MEDS: Aspirin Enteric Coated 81 MG Tablet PO SCH (10:00)
[2018-03-31] MEDS: hydroCHLOROthiazide 25 MG TABLET PO SCH (10:00)
[2018-03-31] MEDS: Acetaminophen 325 MG TABLET PO PRN (12:11)
[2018-03-31] MEDS: Levofloxacin 750 MG/150 ML 750 MG/150 ML BAG IVPB SCH (18:26)
[2018-04-01 05:06] VITALS: BP 136/79
[2018-04-01] MEDS: Aspirin Enteric Coated 81 MG Tablet PO SCH (08:53)
[2018-04-01] MEDS: hydroCHLOROthiazide 25 MG TABLET PO SCH (08:53)
--- NOTE | 2018-04-01 09:45 | Discharge Summary ---
- NOTES TO OUTPATIENT PROVIDER Notes to Outpatient Provider: Follow-up with PCP within one week-final blood culture report to be followed within 3-5 days. Continue Levaquin for total 10 days but it can be extended as per PCP advice Orders not resulted at time of discharge: Pending orders 03/30/18 07:18 Culture,Urine [RM] Stat 03/30/18 08:15 Bedside Spirometry Evaluation [EVAL] Routine 03/30/18 16:29 Bedside Spirometry Evaluation [EVAL] Routine 03/31/18 07:27 Culture,Blood [BC] Routine Date of Encounter: 04/01/18 Time of Encounter: 09:42 - Discharge Diagnosis (1) Bacteremia Priority: Primary Status: Acute Assessment and Plan: Blood culture positive for gram-negative bacteria Escherichia coli sensitive to Levaquin therefore Rocephin stopped and started Levaquin. Repeat blood culture negative in 24 hours. Patient is asymptomatic with no fever or chills and normal white count. Will discharge patient on Levaquin 500 milligrams daily for total 10 days. Patient has to follow-up PCP within 3-5 days for final blood culture report. (2) Pneumonia Priority: Primary Status: Acute Assessment and Plan: Hospital acquired. Right middle lung. Reviewed chest x-ray with positive finding. Continue Levaquin. Patient is asymptomatic with no cough fever Qualifiers: Pneumonia type: due to unspecified organism Laterality: right Lung location: middle lobe of lung Qualified Code(s): J18.1 - Lobar pneumonia, unspecified organism Code(s): J18.9 - Pneumonia, unspecified organism SNOMED Code(s): 578410509 (3) Hypertension Priority: Secondary Status: Chronic Assessment and Plan: Continue home medicine. Qualifiers: Hypertension type: essential hypertension Qualified Code(s): I10 - Essential (primary) hypertension Hospital course: Ms. Holt is a 62 year old female patient got admitted to the floor with the diagnosis of bacteremia, pneumonia. Repeat blood culture day 1 negative. Patient is asymptomatic and improving significantly clinically therefore plan for discharge. Please see diagnosis for the details. Discharge discussed with: patient, family, nurse - Time Spent with Patient Total time spent providing and/or coordinating discharge services: - Discharge Medications Home Medications: Albuterol Sulfate [Ventolin Hfa] 1 puff IH DAILY PRN 01/13/18 [History] Aspirin [Lo-Dose Aspirin EC] 81 mg PO DAILY 01/13/18 [History] Atenolol [Tenormin] 50 mg PO DAILY 01/13/18 [History] Atorvastatin [Lipitor] 40 mg PO HS 01/13/18 [History] Citalopram [CeleXA] 20 mg PO DAILY 01/13/18 [History] Ketoconazole Shampoo [Nizoral Shampoo] 1 appl TP DAILY 01/13/18 [History] Meloxicam [Mobic] 15 mg PO DAILY 01/13/18 [History] Metformin HCl [Metformin HCl ER] 500 mg PO DAILY 01/13/18 [History] Tizanidine HCl 4 mg PO Q8H PRN 01/13/18 [History] hydrOXYzine HCl [Hydroxyzine HCl] 25 mg PO TID 01/13/18 [History] hydroCHLOROthiazide [Hydrochlorothiazide] 25 mg PO DAILY 01/13/18 [History] Cyclobenzaprine [Flexeril] 10 mg PO TID PRN 7 Days #21 tablet 01/14/18 [Rx] Gabapentin [Neurontin] 300 mg PO TID 03/29/18 [History] Lisinopril [Zestril] 40 mg PO DAILY 03/29/18 [History] levoFLOXacin [Levaquin] 500 mg PO DAILY #10 tablet 04/01/18 [Rx] Allergies/Adverse Reactions: 3 Allergy/AdvReac Type Severity Reaction Status Date / Time acetaminophen [From Vicodin] Allergy Hives Verified 03/29/18 09:47 codeine Allergy Hives Verified 03/29/18 09:47 hydrocodone [From Vicodin] Allergy Hives Verified 03/29/18 09:47 Date of admission: 03/28/18 18:54 Primary care physician: Hari Olguin DO Consults: 03/28/18 19:27 Consult to Pastoral Services [CONS] Routine Comment: - Constitutional Vitals: Temp Pulse Resp BP Pulse Ox 98.1 F 55 16 136/79 95 04/01/18 05:05 04/01/18 05:05 04/01/18 05:05 04/01/18 05:05 04/01/18 05:05 General appearance: Present: A&O X 3, answers questions appropriately Exam: General appearance: No acute distress, A&O X 3 Head exam: Atraumatic Eye exam: EOMI, PERRLA ENT exam: Moist oral mucosa Neck nontender, supple Respiratory exam: Clear to auscultation bilaterally Cardiovascular exam: Regular rate and rhythm, no systolic murmur Abdominal exam: Soft, nontender, nondistended, positive bowel sounds Extremities exam: No calf tenderness, no pedal edema Present: Skin-no rash, warm, dry, intact Neurological exam: Alert, awake, oriented 3, CN II-XII intact, no focal deficits. No facial droop. Normal speech. Normal gait. Romberg sign negative - Patient Status Disposition: Home, Self-Care Condition: Good Overall status at discharge: patient is back to baseline - Discharge Instructions Follow Up With: Hari Olguin DO [Primary Care Provider] - - Diet and Activity Activity: increase activity as tolerated Diet: low fat, low cholesterol, low salt diet - VTE Documentation of Mechanical Device: Intermittent pneumatic compression device
--- NOTE | 2018-04-01 10:53 | Physician Discharge Referral ---
Home Health/Hosp Referral Info Transfer to: Home Health Provider in Charge Post Discharge: PCP - Diagnosis (1) Bacteremia Priority: Primary Status: Acute (2) Pneumonia Priority: Primary Status: Acute (3) Hypertension Priority: Secondary Status: Chronic - Respiratory Orders Smoking Cessation: Smoking cessation has been advised. For more information, call the [place] Tobacco Quit Line at 4-592-IYFT-NOW. - Diet/Nutrition Diet/Nutrition Orders: Cardiac - Activity Activity Orders: Up ad nimesh - Services Needed Following services are medically necessary services: Nursing Other Treatments: Continue as previous - Transfer Medications Prescriptions: levoFLOXacin [Levaquin] 500 mg PO DAILY #10 tablet Home Medications: Albuterol Sulfate [Ventolin Hfa] 1 puff IH DAILY PRN 01/13/18 [History] Aspirin [Lo-Dose Aspirin EC] 81 mg PO DAILY 01/13/18 [History] Atenolol [Tenormin] 50 mg PO DAILY 01/13/18 [History] Atorvastatin [Lipitor] 40 mg PO HS 01/13/18 [History] Citalopram [CeleXA] 20 mg PO DAILY 01/13/18 [History] Ketoconazole Shampoo [Nizoral Shampoo] 1 appl TP DAILY 01/13/18 [History] Meloxicam [Mobic] 15 mg PO DAILY 01/13/18 [History] Metformin HCl [Metformin HCl ER] 500 mg PO DAILY 01/13/18 [History] Tizanidine HCl 4 mg PO Q8H PRN 01/13/18 [History] hydrOXYzine HCl [Hydroxyzine HCl] 25 mg PO TID 01/13/18 [History] hydroCHLOROthiazide [Hydrochlorothiazide] 25 mg PO DAILY 01/13/18 [History] Cyclobenzaprine [Flexeril] 10 mg PO TID PRN 7 Days #21 tablet 01/14/18 [Rx] Gabapentin [Neurontin] 300 mg PO TID 03/29/18 [History] Lisinopril [Zestril] 40 mg PO DAILY 03/29/18 [History] levoFLOXacin [Levaquin] 500 mg PO DAILY #10 tablet 04/01/18 [Rx] Allergies/Adverse Reactions: 3 Allergy/AdvReac Type Severity Reaction Status Date / Time acetaminophen [From Vicodin] Allergy Hives Verified 03/29/18 09:47 codeine Allergy Hives Verified 03/29/18 09:47 hydrocodone [From Vicodin] Allergy Hives Verified 03/29/18 09:47 Certification: Further, I certify that my clinical findings support that this patient is homebound (i.e. absences from home require considerable and taxing effort and are for medical reasons or latter-day services or infrequently or short duration when for other reasons) because: Homebound Reason: Patient requires assistance of a person or device to safely leave home Attestation: My signature below is to certify that this patient is under my care and that I, or nurse practitioner, or a physician's speech language pathology assistant working with me, has a face-to -face encounter with this patient.
[2018-04-02] MEDS ORDERED: levoFLOXacin 500 MG TABLET PO SCH (09:00)
== END 2018-04-01 11:47 | disposition home or self-care (01) | DRG 720 ==
LOC: EMEROO 16:52 → 3ANU 16:52 → OBSVTOIN 18:54 → SUATTDRO 18:54 → 3ANU 19:06
PROVIDERS: ADMIT Family Medicine; ATTEND General Practice

== ENCOUNTER 2018-05-06 16:03 | Observation (INO) ==
[2018-05-06] MEDS ORDERED: Aspirin 81 MG TAB.CHEW PO ONE (16:47)
[2018-05-06] MEDS ORDERED: Nitroglycerin 0.4 MG TAB.SUBL SL PRN (16:47)
--- NOTE | 2018-05-06 16:47 | Emergency Department Note ---
Disposition Clinical Impression: Chest pain Qualifiers: Chest pain type: unspecified Qualified Code(s): R07.9 - Chest pain, unspecified Disposition: Admitted As Inpatient Condition: Fair Referrals: Hari Olguin DO [Primary Care Provider] - Forms: ED Satisfaction Letter Chest Pain HPI - General Chief Complaint: ED Chest Pain Stated Complaint: chest pain x 2 days Time Seen by Provider: 05/06/18 16:31 Source: EMS Mode of arrival: ambulatory Limitations: no limitations Vital Signs Reviewed: Yes Nursing Notes Reviewed: Yes - History of Present Illness HPI Narrative: 62-year-old female presents emergency department with left-sided chest pain over the last 2 weeks, worsening today. Patient has no history of HI or any stents. Patient states it radiates over to the left shoulder. She denies any unilateral leg swelling, or history of DVT. Patient has not tried any medication for. Patient reports being very sad and depressed. Does not report any suicidal or homicidal ideations. Patient has history of hypertension, hyperlipidemia, is obese. Severity scale (1-10): 0 - Related Data Home Medications Medication Instructions Recorded Confirmed Albuterol Sulfate [Ventolin Hfa] 1 puff IH DAILY PRN 01/13/18 03/29/18 Aspirin [Lo-Dose Aspirin EC] 81 mg PO DAILY 01/13/18 03/29/18 Atenolol [Tenormin] 50 mg PO DAILY 01/13/18 03/29/18 Atorvastatin [Lipitor] 40 mg PO HS 01/13/18 03/29/18 Citalopram [CeleXA] 20 mg PO DAILY 01/13/18 03/29/18 Ketoconazole Shampoo [Nizoral 1 appl TP DAILY 01/13/18 03/29/18 Shampoo] Meloxicam [Mobic] 15 mg PO DAILY 01/13/18 03/29/18 Metformin HCl [Metformin HCl ER] 500 mg PO DAILY 01/13/18 03/29/18 Tizanidine HCl 4 mg PO Q8H PRN 01/13/18 03/29/18 hydrOXYzine HCl [Hydroxyzine HCl] 25 mg PO TID 01/13/18 03/29/18 hydroCHLOROthiazide 25 mg PO DAILY 01/13/18 03/29/18 [Hydrochlorothiazide] Gabapentin [Neurontin] 300 mg PO TID 03/29/18 03/29/18 Lisinopril [Zestril] 40 mg PO DAILY 03/29/18 03/29/18 Previous Rx's Medication Instructions Recorded Cyclobenzaprine [Flexeril] 10 mg PO TID PRN 7 Days #21 tablet 01/14/18 Allergies Allergy/AdvReac Type Severity Reaction Status Date / Time acetaminophen [From Vicodin] Allergy Hives Verified 03/29/18 09:47 codeine Allergy Hives Verified 03/29/18 09:47 hydrocodone [From Vicodin] Allergy Hives Verified 03/29/18 09:47 All systems ED: reviewed and negative except as stated. Review of Systems: As Per HPI Constitutional: Denies: fever Cardiovascular: Reports: chest pain. Denies: palpitations Respiratory: Denies: cough, dyspnea, wheezes, hemoptysis Gastrointestinal: Denies: abdominal pain, nausea Genitourinary: Denies: urgency Musculoskeletal: Reports: other (Left shoulder pain). Denies: back pain, neck pain Integumentary: Denies: rash Neurological: Denies: headache Endocrine: Denies: fatigue Chest Pain PMH - Past Medical History Medical history: Reports: hyperlipidemia, hypertension Surgical history: Reports: hysterectomy Psychiatric history: Reports: anxiety, depression - Social History Smoking Status: Never smoker Alcohol use: Reports: none Drug use: Reports: none Physical Exam - General General appearance: alert, in no apparent distress - Head Head exam: normocephalic - Eye Eye exam: Present: EOMI - ENT ENT exam: normal oropharynx - Neck Neck exam: Present: trachea midline - Chest Chest inspection: Present: normal inspection, symmetric chest wall rise - Respiratory Respiratory exam: Present: normal lung sounds bilaterally. Absent: respiratory distress - Cardiovascular Cardiovascular exam: Present: regular rate, normal rhythm, normal heart sounds - Abdominal Exam Abdominal exam: Present: soft, Non-Tender. Absent: distention, guarding, rebound - Extremities Exam Extremities exam: Present: normal capillary refill - Back Exam Back exam: Present: full ROM - Neurological Exam Neurological exam: Present: alert, oriented X3 - Psychiatric Psychiatric exam: Present: depressed. Absent: homicidal ideation, suicidal ideation Course Vital Signs Temperature 97.9 F 05/06/18 16:05 Pulse Rate 75 05/06/18 16:05 Respiratory Rate 16 05/06/18 16:05 Blood Pressure 180/83 05/06/18 16:05 O2 Sat by Pulse Oximetry 96 05/06/18 16:05 Temperature 97.9 F 05/06/18 16:05 Pulse Rate 67 05/06/18 17:50 Respiratory Rate 14 05/06/18 17:50 Blood Pressure 189/83 05/06/18 17:50 O2 Sat by Pulse Oximetry 97 05/06/18 17:50 Oxygen Delivery Oxygen Delivery Room Air Chest Pain - MDM Narrative Medical decision making narrative: 62-year-old female presents emergency department with concern for chest pain. At this time, patient has chest x-ray that reveals no acute cardiopulmonary abnormality. She is currently hemodynamically stable. Troponin is negative. No leukocytosis. Creatinine is normal. Patient has a heart score 4. We will admit her for observation. Do not think this is an aortic dissection as ther is no widening of the mediastinum on chest x-ray the patient currently not having any chest pain. Patient is not hypoxic or hypotensive, no recent travel , no unilateral leg swelling, do not think this is a pulmonary embolism. Patient was given aspirin here in the emergency department. She was offered nitroglycerin trial, but she was not reporting any chest pain. Heart score is 4. We will admit for chest pain observation. Patient agrees with plan. Hemodynamically stable not in acute distress at time of admission. Spoke with hospitalist agreed to accept the patient for admission. Chest X-Ray 05/06/18 16:15 IMPRESSION: No acute cardiopulmonary abnormality. D/ / Mansoor Barbosa / Mansoor Barbosa Interpreting Provider: Mansoor Barbosa Vital Signs Temperature 97.9 F 05/06/18 16:05 Pulse Rate 75 05/06/18 16:05 Respiratory Rate 16 05/06/18 16:05 Blood Pressure 180/83 05/06/18 16:05 O2 Sat by Pulse Oximetry 96 05/06/18 16:05 Temperature 97.9 F 05/06/18 16:05 Pulse Rate 67 05/06/18 17:50 Respiratory Rate 14 05/06/18 17:50 Blood Pressure 189/83 05/06/18 17:50 O2 Sat by Pulse Oximetry 97 05/06/18 17:50 Oxygen Delivery Oxygen Delivery Room Air - Lab Data Result diagrams: 05/06/18 16:39 05/06/18 16:39 Lab Results 05/06/18 05/06/18 Range/Units 16:39 16:39 WBC 5.4 (4.3-11.1) K/mcL RBC 4.50 (3.82-4.97) M/mcL Hgb 13.9 (11.5-15.4) g/dL Hct 40.3 (35.3-44.9) % MCV 89.6 (83.0-100.0) fL MCH 30.9 (28.0-33.3) pg MCHC 34.5 (31.6-35.5) g/dL RDW 13.0 (11.5-14.5) % Plt Count 202 (140-400) K/mcL MPV 10.1 (9.4-12.4) fL Immature Gran % 0.2 (0-4) % Seg Neutrophils % 55.3 % Lymphocytes % 34.3 % Monocytes % 7.3 % Eosinophils % 2.2 % Basophils % 0.7 % Neutrophils # 3.0 (1.6-8.9) K/mcL Lymphocytes # 1.8 (0.6-4.6) K/mcL Monocytes # 0.4 (0.0-1.3) K/mcL Eosinophils # 0.1 (0.0-0.6) K/mcL Basophils # 0.0 (0.0-0.2) K/mcL Sodium 140 (136-145) mEq/L Potassium 3.5 (3.5-5.1) mEq/L Chloride 109 H (98-107) mEq/L Carbon Dioxide 26 (23-29) mEq/L BUN 15 (8-23) mg/dL Creatinine 0.69 (0.60-1.20) mg/dL Est GFR ( Amer) > 60 (> 60) Est GFR (Non-Af Amer) > 60 (> 60) BUN/Creatinine Ratio 22 (6-26) Glucose 128 H (70-105) mg/dL Calculated Osmolality 292 (280-300) Calcium 9.4 (8.6-10.3) mg/dL Troponin I < 0.03 (< 0.04) ng/mL - EKG Data EKG attestation: Yes I reviewed and interpreted this EKG. EKG results narrative: 16:14 Ventricular rate 71 bpm, AL interval 168 ms, QRS duration 120 ms, QT 391 ms, QTC 413 ms, attacks deviation. Sinus rhythm with a ventricular rate of 71 bpm. There is a left bundle-branch block. This EKG is similar from her previous one obtained from October 2016. Heart Score - Score History: Moderately Suspicious EKG: Normal Age: 45-65 Risk Factors: Equal/Greater than 3 risk factor or history of atherosclerotic disease Troponin: Less than normal limit HEART Score Total: 4
[2018-05-06 17:01] LABS: Basophils % 0.7 %; Eosinophils # 0.1 K/mcL (0.0-0.6); Eosinophils % 2.2 %; Hematocrit 40.3 % (35.3-44.9); Hemoglobin 13.9 g/dL (11.5-15.4); Immature Granulocytes % 0.2 % (0-4); Lymphocytes # 1.8 K/mcL (0.6-4.6); Lymphocytes % 34.3 %; Mean Corpuscular HGB Conc 34.5 g/dL (31.6-35.5); Mean Corpuscular Hemoglobin 30.9 pg (28.0-33.3); Mean Corpuscular Volume 89.6 fL (83.0-100.0); Mean Platelet Volume 10.1 fL (9.4-12.4); Monocytes # 0.4 K/mcL (0.0-1.3); Monocytes % 7.3 %; Platelet Count 202 K/mcL (140-400); Segmented Neutrophils % 55.3 %
[2018-05-06 17:32] LABS: BUN/Creatinine Ratio 22 (6-26); Blood Urea Nitrogen 15 mg/dL (8-23); Calcium 9.4 mg/dL (8.6-10.3); Carbon Dioxide 26 mEq/L (23-29); Chloride 109 mEq/L (98-107); Glucose 128 mg/dL (70-105); Osmolality,Calculated 292 (280-300); Potassium 3.5 mEq/L (3.5-5.1); Sodium 140 mEq/L (136-145); Troponin I < 0.03 ng/mL (< 0.04); eGFR For Non-African Americans > 60 (> 60)
--- NOTE | 2018-05-06 18:19 | Emergency Department Note ---
Disposition Clinical Impression: Chest pain, rule out acute myocardial infarction Disposition: Admitted As Inpatient Condition: Fair Referrals: Hari Olguin DO [Primary Care Provider] - Forms: ED Satisfaction Letter Time of Disposition: 18:00 Chest Pain HPI - General Chief Complaint: ED Chest Pain Stated Complaint: chest pain x 2 days Time Seen by Provider: 05/06/18 16:31 Source: EMS Mode of arrival: ambulatory Limitations: no limitations Vital Signs Reviewed: Yes Nursing Notes Reviewed: Yes - History of Present Illness Severity scale (1-10): 0 - Related Data Home Medications Medication Instructions Recorded Confirmed Albuterol Sulfate [Ventolin Hfa] 1 puff IH DAILY PRN 01/13/18 03/29/18 Aspirin [Lo-Dose Aspirin EC] 81 mg PO DAILY 01/13/18 03/29/18 Atenolol [Tenormin] 50 mg PO DAILY 01/13/18 03/29/18 Atorvastatin [Lipitor] 40 mg PO HS 01/13/18 03/29/18 Citalopram [CeleXA] 20 mg PO DAILY 01/13/18 03/29/18 Ketoconazole Shampoo [Nizoral 1 appl TP DAILY 01/13/18 03/29/18 Shampoo] Meloxicam [Mobic] 15 mg PO DAILY 01/13/18 03/29/18 Metformin HCl [Metformin HCl ER] 500 mg PO DAILY 01/13/18 03/29/18 Tizanidine HCl 4 mg PO Q8H PRN 01/13/18 03/29/18 hydrOXYzine HCl [Hydroxyzine HCl] 25 mg PO TID 01/13/18 03/29/18 hydroCHLOROthiazide 25 mg PO DAILY 01/13/18 03/29/18 [Hydrochlorothiazide] Gabapentin [Neurontin] 300 mg PO TID 03/29/18 03/29/18 Lisinopril [Zestril] 40 mg PO DAILY 03/29/18 03/29/18 Previous Rx's Medication Instructions Recorded Cyclobenzaprine [Flexeril] 10 mg PO TID PRN 7 Days #21 tablet 01/14/18 levoFLOXacin [Levaquin] 500 mg PO DAILY #10 tablet 04/01/18 Allergies Allergy/AdvReac Type Severity Reaction Status Date / Time acetaminophen [From Vicodin] Allergy Hives Verified 03/29/18 09:47 codeine Allergy Hives Verified 03/29/18 09:47 hydrocodone [From Vicodin] Allergy Hives Verified 03/29/18 09:47 Constitutional: Denies: fever Cardiovascular: Reports: chest pain. Denies: palpitations Respiratory: Denies: cough, dyspnea, wheezes, hemoptysis Gastrointestinal: Denies: abdominal pain, nausea Genitourinary: Denies: urgency Musculoskeletal: Reports: other (Left shoulder pain). Denies: back pain, neck pain Integumentary: Denies: rash Neurological: Denies: headache Endocrine: Denies: fatigue Chest Pain PMH - Past Medical History Medical history: Reports: hyperlipidemia, hypertension Surgical history: Reports: hysterectomy Psychiatric history: Reports: anxiety, depression - Social History Smoking Status: Never smoker Alcohol use: Reports: none Drug use: Reports: none Physical Exam - General Limitations: no limitations General appearance: alert, in no apparent distress Course Vital Signs Temperature 97.9 F 05/06/18 16:05 Pulse Rate 75 05/06/18 16:05 Respiratory Rate 16 05/06/18 16:05 Blood Pressure 180/83 05/06/18 16:05 O2 Sat by Pulse Oximetry 96 05/06/18 16:05 Temperature 97.9 F 05/06/18 16:05 Pulse Rate 75 05/06/18 16:05 Respiratory Rate 16 05/06/18 16:05 Blood Pressure 180/83 05/06/18 16:05 O2 Sat by Pulse Oximetry 96 05/06/18 16:05 Oxygen Delivery Oxygen Delivery Room Air Chest Pain - Lab Data Result diagrams: 05/06/18 16:39 05/06/18 16:39 Lab Results 05/06/18 05/06/18 Range/Units 16:39 16:39 WBC 5.4 (4.3-11.1) K/mcL RBC 4.50 (3.82-4.97) M/mcL Hgb 13.9 (11.5-15.4) g/dL Hct 40.3 (35.3-44.9) % MCV 89.6 (83.0-100.0) fL MCH 30.9 (28.0-33.3) pg MCHC 34.5 (31.6-35.5) g/dL RDW 13.0 (11.5-14.5) % Plt Count 202 (140-400) K/mcL MPV 10.1 (9.4-12.4) fL Immature Gran % 0.2 (0-4) % Seg Neutrophils % 55.3 % Lymphocytes % 34.3 % Monocytes % 7.3 % Eosinophils % 2.2 % Basophils % 0.7 % Neutrophils # 3.0 (1.6-8.9) K/mcL Lymphocytes # 1.8 (0.6-4.6) K/mcL Monocytes # 0.4 (0.0-1.3) K/mcL Eosinophils # 0.1 (0.0-0.6) K/mcL Basophils # 0.0 (0.0-0.2) K/mcL Sodium 140 (136-145) mEq/L Potassium 3.5 (3.5-5.1) mEq/L Chloride 109 H (98-107) mEq/L Carbon Dioxide 26 (23-29) mEq/L BUN 15 (8-23) mg/dL Creatinine 0.69 (0.60-1.20) mg/dL Est GFR ( Amer) > 60 (> 60) Est GFR (Non-Af Amer) > 60 (> 60) BUN/Creatinine Ratio 22 (6-26) Glucose 128 H (70-105) mg/dL Calculated Osmolality 292 (280-300) Calcium 9.4 (8.6-10.3) mg/dL Troponin I < 0.03 (< 0.04) ng/mL Attestation Statement - Attestation Attestation: I, Jared Galan, examined this patient and my medical decision-making was reviewed with the LIBRARY DIRECTOR/PA/Advanced Practice Nurse/Resident Physician. I agree with the documented findings, disposition and treatment plan as described except to the extent set forth below. 62-year-old female presents emergency Department with concerns of chest pain. Patient states pain is a pressure in the left upper chest which is been intermittent over the past 12-24 hours. Patient reports associated diaphoresis however she denied nausea or syncope or palpitations. Patient states she had symptoms like this in the past however she states she has not had a stress test or heart catheterization. No history of PA in the past. Initial EKG did not show evidence of STEMI. Initial troponin was negative. Patient be admitted to the hospital for further care and evaluation as she has a heart score of 4.
--- NOTE | 2018-05-06 18:47 | Internal Med History&Physical ---
Date of Encounter: 05/06/18 Time of Encounter: 18:45 Internal Medicine - H&P: HPI Chief complaint: Chest pain Admitted From: Home Plans for Post Hospital Care: Home History of present illness: Ms. Holt is a 62 year old female with history of hypertension, hyperlipidemia and diabetes presented to the ED with complaint of chest pain. Her pain started on the morning of admission while she was laying in bed. She describes her pain as retrosternal, crushing, 8 out of 10 pain with radiation to her left arm. She has had this pain for the past few weeks on and off. Her pain lasted for 2-3 minutes and resolved by itself. She cannot recall any aggravating or alleviating factors. She reports compliance to her blood pressure medications, does not have pain on ambulation. She can walk 3 blocks but has to stop for shortness of breath at times. Denies smoking history, currently is chest pain-free denies palpitations, orthopnea, leg swelling, prolonged immobilization, or PND. she denies fever, chills, head trauma, syncope, palpitations, N/V/D, heat or cold intolerance, has no cardiac history in the ED EKG was done which showed old LBBB, troponin was negative and her she was Chest pain free. was endorsed to admit for chest pain rule out ACS. Past Med Surg Social Fam HX - Past Medical History Medical history: hyperlipidemia, hypertension Additional medical history: broken collar bone Psychiatric history: anxiety, depression - Past Surgical History Surgical History: hysterectomy Additional surgical history: repair brain aneurysm, - Social History Smoking Status: Never smoker Smokeless Tobacco Status: No Alcohol use: none Drug use: none - Family History Mother Living Status: Hx Family Cancer: Yes Internal Medicine - H&P: Meds RX: Albuterol Sulfate [Ventolin Hfa] 1 puff IH DAILY PRN 01/13/18 [History] RX: Aspirin [Lo-Dose Aspirin EC] 81 mg PO DAILY 01/13/18 [History] RX: Atenolol [Tenormin] 50 mg PO DAILY 01/13/18 [History] RX: Atorvastatin [Lipitor] 40 mg PO HS 01/13/18 [History] RX: Citalopram [CeleXA] 20 mg PO DAILY 01/13/18 [History] RX: Ketoconazole Shampoo [Nizoral Shampoo] 1 appl TP DAILY 01/13/18 [History] RX: Meloxicam [Mobic] 15 mg PO DAILY 01/13/18 [History] RX: Metformin HCl [Metformin HCl ER] 500 mg PO DAILY 01/13/18 [History] RX: Tizanidine HCl 4 mg PO Q8H PRN 01/13/18 [History] RX: hydrOXYzine HCl [Hydroxyzine HCl] 25 mg PO TID 01/13/18 [History] RX: hydroCHLOROthiazide [Hydrochlorothiazide] 25 mg PO DAILY 01/13/18 [History] RX: Cyclobenzaprine [Flexeril] 10 mg PO TID PRN 7 Days #21 tablet 01/14/18 [Rx] RX: Gabapentin [Neurontin] 300 mg PO TID 03/29/18 [History] RX: Lisinopril [Zestril] 40 mg PO DAILY 03/29/18 [History] 3 Allergy/AdvReac Type Severity Reaction Status Date / Time acetaminophen [From Vicodin] Allergy Hives Verified 03/29/18 09:47 codeine Allergy Hives Verified 03/29/18 09:47 hydrocodone [From Vicodin] Allergy Hives Verified 03/29/18 09:47 All Systems PM: review of systems was performed and is negative for pertinent findings except as documented above in the HPI. - Constitutional Vitals: Temp Pulse Resp BP Pulse Ox 97.9 F 67 14 189/83 97 05/06/18 16:05 05/06/18 17:50 05/06/18 17:50 05/06/18 17:50 05/06/18 17:50 - Other Additional findings: General: Patient is alert, oriented, no acute distress, obese Head: atraumatic, normocephalic, Eye: normal appearance, PERRL, no scleral icterus, no conjunctival injection ENT: mucous membranes moist, normal external ear exam, poor dentition Neck: normal inspection, trachea midline, full ROM, no carotid bruits Chest: normal inspection, symmetric chest rise Respiratory: Good respiratory effort. Bilateral breath sounds are clear without wheezing, crackles, or rhonchi. Cardiovascular: Regular rate and rhythm. s1 and s2 No clicks, rubs, gallops, or murmors. Abdomen: Bowel sounds present normoactive x-4 quadrants. Abdomen is soft, nondistended. Epigastric tenderness. No guarding or rebound. No organomegaly noted, obese musculoskeletal: Spontaneously moving all extremities. no edema, no calf tenderness Skin: warm, dry, intact. Neuro: Alert and oriented x4. Sensation light touch intact. Cranial nerves 2- 12 is intact. Psych: Patient's affect is normal Internal Med - H&P Results - Labs CBC & Chem 7: 05/06/18 16:39 05/06/18 16:39 Labs: Short CBC 05/06/18 Range/Units 16:39 WBC 5.4 (4.3-11.1) K/mcL Hgb 13.9 (11.5-15.4) g/dL Hct 40.3 (35.3-44.9) % Plt Count 202 (140-400) K/mcL Neutrophils # 3.0 (1.6-8.9) K/mcL BMP 05/06/18 16:39 Sodium 140 Potassium 3.5 Chloride 109 H Carbon Dioxide 26 BUN 15 Creatinine 0.69 Glucose 128 H Calcium 9.4 Cardiac Enzymes 05/06/18 Range/Units 16:39 Troponin I < 0.03 (< 0.04) ng/mL - EKG Data -: EKG Interpreted by Myself - EKG Data Prior EKG available for review: yes (sinust rhythm LBBB- as comapred to the EKG from 03/26/17 no acte changes) - Impressions ITS Impressions Chest X-Ray 05/06/18 16:15 IMPRESSION: No acute cardiopulmonary abnormality. D/ / Mansoor Barbosa / Mansoor Barbosa Interpreting Provider: Mansoor Barbosa - Assessment and plan (1) Chest pain, rule out acute myocardial infarction Current Visit: Yes Status: Acute Assessment and plan: was loaded with ASA in the ED cardiac monitoring first troponin negative will follow Q6H x2 along with EKG will continue home ASA, atenolol, lipitor, lisinopril and HCTZ monitor electrolytes consider cardiology in the AM Transthoracic echocardiograph to identify regional wall motion abnormalities and assess LV function nitro PRN for chest pain Utox Check lipid panel Supplemental oxygen keep SPo2>92% will keep NPO at midnight for possible procedure in the AM ( stress test ) (2) Hypertension Current Visit: No Status: Chronic Assessment and plan: will continue home medication if not contraindicated Qualifiers: Hypertension type: essential hypertension Qualified Code(s): I10 - Essential (primary) hypertension (3) Hyperlipidemia Current Visit: No Status: Chronic Assessment and plan: lipid panel in the AM continue lipitor 40 mg Qhs Qualifiers: Hyperlipidemia type: pure hypercholesterolemia Qualified Code(s): E78.00 - Pure hypercholesterolemia, unspecified; E78.0 - Pure hypercholesterolemia (4) Diabetes mellitus Current Visit: Yes Status: Acute Assessment and plan: will start her on sliding scale A1C hold metformin Qualifiers: Diabetes mellitus type: type 2 Diabetes mellitus [facility] insulin use: without [facility] use Diabetes mellitus complication status: without complication Qualified Code(s): E11.9 - Type 2 diabetes mellitus without complications (5) Depression Current Visit: Yes Status: Acute Assessment and plan: will continue home meds watch QT Qualifiers: Depression Type: unspecified Qualified Code(s): F32.9 - Major depressive disorder, single episode, unspecified (6) DVT prophylaxis Current Visit: Yes Status: Acute Assessment and plan: heparin 500 units Q8H SC - Time Spent With Patient Total time spent is greater than 50% in coordination of care (as documented) at patient's floor/unit and/or counseling patient:
[2018-05-06] MEDS ORDERED: Dextrose Gel 15 GM/37.5 ML TUBE PO PRN ×2 (18:57)
[2018-05-06] MEDS ORDERED: *HR* Dextrose 50 % in Water (Syg) 50 ML SYRINGE IVP PRN (18:57)
[2018-05-06] MEDS ORDERED: D5% in Water 1,000 ML IVC PRN (18:57)
[2018-05-06 20:11] LABS: Prothrombin Time 11.2 Seconds (9.4-12.1)
[2018-05-06 20:13] LABS: Activated Partial Thrombo Time 29.5 Seconds (26.0-36.0)
[2018-05-06] MEDS: Gabapentin 300 MG CAPSULE PO SCH (21:40)
[2018-05-06] MEDS: *HR* Heparin 5,000 UNIT/ML VIAL SQ SCH (21:40)
[2018-05-07] MEDS ORDERED: *HR* Metoprolol 5 MG/5 ML VIAL IVP ONE (00:23)
[2018-05-07 01:49] LABS: Basophils % 0.6 %; Eosinophils # 0.2 K/mcL (0.0-0.6); Eosinophils % 2.6 %; Hematocrit 41.9 % (35.3-44.9); Hemoglobin 14.3 g/dL (11.5-15.4); Immature Granulocytes % 0.5 % (0-4); Lymphocytes # 2.7 K/mcL (0.6-4.6); Lymphocytes % 41.1 %; Mean Corpuscular HGB Conc 34.1 g/dL (31.6-35.5); Mean Corpuscular Hemoglobin 30.7 pg (28.0-33.3); Mean Corpuscular Volume 89.9 fL (83.0-100.0); Mean Platelet Volume 10.3 fL (9.4-12.4); Monocytes # 0.5 K/mcL (0.0-1.3); Monocytes % 7.3 %; Neutrophils # 3.1 K/mcL (1.6-8.9); Platelet Count 223 K/mcL (140-400); Red Blood Count 4.66 M/mcL (3.82-4.97); Red Cell Distribution Width 13.2 % (11.5-14.5); Segmented Neutrophils % 47.9 %
[2018-05-07 02:06] LABS: Amphetamine Screen,Urine Negative ng/mL (Cutoff=1000); Barbiturate Screen,Urine Negative ng/mL (Cutoff=200); Benzodiazepines Screen,Urine Negative ng/mL (Cutoff=200); Cannabinoid Screen,Urine Negative ng/mL (Cutoff = 50); Cocaine Screen,Urine Negative ng/mL (Cutoff= 300); Opiate Screen,Urine Negative ng/mL (Cutoff=300); Phencyclidine Screen,Urine Negative ng/mL (Cutoff=25)
[2018-05-07 02:11] LABS: BUN/Creatinine Ratio 20 (6-26); Blood Urea Nitrogen 13 mg/dL (8-23); Calcium 9.7 mg/dL (8.6-10.3); Carbon Dioxide 26 mEq/L (23-29); Chloride 110 mEq/L (98-107); Chol/HDL Ratio 5.1 (0-4.9); Cholesterol 209 mg/dL (< 200); Glucose 119 mg/dL (70-105); HDL Cholesterol 41 mg/dL (40-59); LDL Cholesterol,Calculated 130 mg/dL (0-99); Osmolality,Calculated 291 (280-300); Potassium 3.7 mEq/L (3.5-5.1); Sodium 140 mEq/L (136-145); Triglycerides 191 mg/dL (< 150); Troponin I < 0.03 ng/mL (< 0.04); eGFR For Non-African Americans > 60 (> 60)
[2018-05-07] MEDS: *HR* Heparin 5,000 UNIT/ML VIAL SQ SCH ×2 (05:01→14:21)
[2018-05-07 06:31] LABS: Estimated Average Glucose 126 mg/dl
[2018-05-07] MEDS ORDERED: Lisinopril 20 MG TABLET PO SCH (09:00)
[2018-05-07] MEDS ORDERED: hydroCHLOROthiazide 25 MG TABLET PO SCH (09:00)
[2018-05-07] MEDS ORDERED: Aspirin Enteric Coated 81 MG Tablet PO SCH (09:00)
[2018-05-07] MEDS: Insulin LISPRO 300 UNITS/3 ML VIAL SQ SCH ×2 (11:32→14:34)
[2018-05-07] MEDS ORDERED: Regadenoson 0.4 MG/5 ML SYRINGE IVP ONE (12:30)
[2018-05-07] MEDS: Gabapentin 300 MG CAPSULE PO SCH ×2 (14:16→14:19)
[2018-05-07 15:46] VITALS: BP 144/78
--- NOTE | 2018-05-07 16:30 | Electrocardiograph Report ---
[place] [address] Test Date: 2018-05-06 Pat Name: Merry Holt Department: 104 Room: 3B47 Gender: F Pet Feeder: : 1955 Requested By: Mahendra Verdugo Order Number: [id number] Reading MD: Po Lee Measurements Intervals [place] Rate: 71 P: 57 [place]: 168 QRS: -2 QRSD: 120 T: 106 QT: 391 QTc: 413 Interpretive Statements SINUS RHYTHM LEFT BUNDLE BRANCH BLOCK Electronically Signed On 05-07-2018 16:28:53 EDT by Po Lee
--- NOTE | 2018-05-07 16:45 | Electrocardiograph Report ---
[address] [address] Test Date: 2018-05-07 Pat Name: Merry Holt Department: 113 Room: 3B Gender: F Costumed Character: : 1955 Requested By: [id number] Order Number: [id number] Reading MD: Po Lee Measurements Intervals [place] Rate: 55 P: 50 [place]: 190 QRS: 8 QRSD: 118 T: 68 QT: 466 QTc: 456 Interpretive Statements SINUS BRADYCARDIA MODERATE INTRAVENTRICULAR CONDUCTION DELAY Electronically Signed On 05-07-2018 16:43:54 EDT by Po Lee
--- NOTE | 2018-05-07 17:03 | Discharge Summary ---
Orders not resulted at time of discharge: Pending orders 05/07/18 09:53 NM cindi perf SPECT multi [NM] Routine 05/07/18 11:12 POC Glucometer Test [POC] Routine Date of Encounter: 05/07/18 Time of Encounter: 16:59 - Discharge Diagnosis (1) Chest pain Priority: Primary Status: Acute Qualifiers: Chest pain type: precordial pain Qualified Code(s): R07.2 - Precordial pain (2) Hypertension Priority: Secondary Status: Chronic Qualifiers: Hypertension type: essential hypertension Qualified Code(s): I10 - Essential (primary) hypertension (3) Hyperlipidemia Priority: Secondary Status: Chronic Qualifiers: Hyperlipidemia type: pure hypercholesterolemia Qualified Code(s): E78.00 - Pure hypercholesterolemia, unspecified; E78.0 - Pure hypercholesterolemia (4) Depression with anxiety Priority: Secondary Status: Acute Hospital course: Ms. Holt is a 62 year old female The patient was admitted with retrosternal chest pain with radiation to left arm. The pain was not triggered by exertion or any other factors. It lasted for a few minutes. The pain did not repeat itself after admission. EKG and cardiac enzymes were normal. We did echocardiogram. It showed ejection fraction of about 5560%. We did a Cardiolite stress test. The patient had underlying LBBB. Perfusion imaging was negative for ischemia or infarct. Condition on discharge: The patient feels good. Denies chest pain and difficulty breathing. Denies coughing and wheezing. She ambulates on her own without difficulties. See discharge orders/medications. Discharge discussed with: patient, family - Time Spent with Patient Total time spent providing and/or coordinating discharge services: Greater than 30 minutes (35 minutes) - Discharge Medications Home Medications: Albuterol Sulfate [Ventolin Hfa] 1 puff IH DAILY PRN 01/13/18 [History] Aspirin [Lo-Dose Aspirin EC] 81 mg PO DAILY 01/13/18 [History] Atenolol [Tenormin] 50 mg PO DAILY 01/13/18 [History] Atorvastatin [Lipitor] 40 mg PO HS 01/13/18 [History] Citalopram [CeleXA] 20 mg PO DAILY 01/13/18 [History] Ketoconazole Shampoo [Nizoral Shampoo] 1 appl TP DAILY 01/13/18 [History] Meloxicam [Mobic] 15 mg PO DAILY 01/13/18 [History] Metformin HCl [Metformin HCl ER] 500 mg PO DAILY 01/13/18 [History] Tizanidine HCl 4 mg PO Q8H PRN 01/13/18 [History] hydrOXYzine HCl [Hydroxyzine HCl] 25 mg PO TID 01/13/18 [History] hydroCHLOROthiazide [Hydrochlorothiazide] 25 mg PO DAILY 01/13/18 [History] Cyclobenzaprine [Flexeril] 10 mg PO TID PRN 7 Days #21 tablet 01/14/18 [Rx] Gabapentin [Neurontin] 300 mg PO TID 03/29/18 [History] Lisinopril [Zestril] 40 mg PO DAILY 03/29/18 [History] Allergies/Adverse Reactions: 3 Allergy/AdvReac Type Severity Reaction Status Date / Time acetaminophen [From Vicodin] Allergy Hives Verified 03/29/18 09:47 codeine Allergy Hives Verified 03/29/18 09:47 hydrocodone [From Vicodin] Allergy Hives Verified 03/29/18 09:47 Date of admission: 05/06/18 20:28 Primary care physician: Hari Olguin DO Discharging clinician: Danny Wilder Anticipated date of discharge: 05/07/18 - Constitutional Vitals: Temp Pulse Resp BP Pulse Ox 98.0 F 66 16 144/78 96 05/07/18 15:44 05/07/18 15:44 05/07/18 15:44 05/07/18 15:44 05/07/18 15:44 - Respiratory Respiratory exam: Present: CTAB. Absent: accessory muscle use, rales, rhonchi, wheezes - Cardiovascular Cardiovascular exam: Present: RRR, +S1, +S2. Absent: diastolic murmur, gallop, rubs, systolic murmur - GI/Abdominal GI/Abdominal exam: Present: normal bowel sounds, soft, no peritoneal signs. Absent: distended, tenderness - Patient Status Disposition: Home, Self-Care Condition: Good Functional capacity at discharge: independent ambulation Overall status at discharge: patient is back to baseline - Discharge Instructions Instructions: Chest Pain (DC) Follow Up With: Hari Olguin DO [Primary Care Provider] - - Diet and Activity Activity: resume usual activities as tolerated Diet: diabetic diet - VTE Deep Vein Thrombosis/Pulmonary Embolism Present on Admission: No
== END 2018-05-07 17:56 | disposition home or self-care (01) ==
LOC: 3BNU 16:03 → EMEROO 16:03 → SUATTDRO 20:28 → 3BNU 21:05
PROVIDERS: ADMIT Internal Medicine; ATTEND Internal Medicine